=== PATIENT | female | born 1980 | race Caucasian/White ===

== ENCOUNTER 2017-02-07 21:08 | Emergency (ER) | payer OTHER ==
[~2017-02-07] VITALS: Ht 172.7 cm; Wt 113.4 kg
[~2017-02-07 21:08] MED LIST: AMOXICILLIN500 M2 PO; ANAPROX DS550 MG PO; ASPIRIN ADULT L81 M1 PO; ASPIRIN325 M2 PO; ATARAX25 MG PO; ATIVAN1 MG PO; AVAPRO300 MG PO; AYGESTIN5 MG PO; BENTYL10 MG PO; BENTYL20 MG PO; CARDIZEM CD240 M1 PO; CIPRO500 MG PO; CIPROFLOXACIN500 M1 PO; CIPROFLOXACIN500 MG PO; CLARITIN10 MG PO; CLINDAMYCIN150 MG PO; CLONIDINE HCL0.1 M1 PO; CLONIDINE0.1 MG PO; CLONIDINE0.2 MG PO; CORTISPORIN SUS10 ML OT; COUMADIN PO; COUMADIN10 M1 PO; COUMADIN3 M1 PO; COUMADIN5 M2 PO; COUMADIN5 MG PO; COUMADIN7.5 MG PO; COZAAR25 MG PO; COZAAR50 M1 PO; CYMBALTA30 MG PO; DELTASONE20 MG PO; ELIMITE 5%60 GM PO; FLAGYL500 MG PO; FLONASE ALLERG9.9 ML NAS; Fioricet 325 MG1 TAB PO; HYDR12.5C PO; HYDROCODONE BIT1 T11 PO; K-Dur 20MEQ20 MEQ PO; KLONOPIN0.5 MG PO; LIPITOR10 MG PO; LOPRESSOR PO; LORAZEPAM1 MG PO; LOVENOX100 MG/1 M SC; MACROBID100 M1 PO; MACRODANTIN100 MG PO; MEDROL DOSEPAK4 MG PO; METFORMIN500 MG PO; NORCO 325 MG-51 TAB PO; PERCOCET 325 MG1 TA7 PO; PLAVIX75 M1 PO; PREDNISONE10 MG PO; PREVACID30 MG PO; PRILOSEC20 MG PO; PROAIR HFA0.09 MG/AC INH; PROPRANOLOL PO; PROPRANOLOL10 MG PO; REXULTI1 MG PO; ROBITUSSIN AC 110 ML PO; ROXICODONE5 MG PO; TOPAMAX25 M1 PO; TOPAMAX50 MG PO; TRAMADOL HCL50 MG PO; VIBRAMYCIN HYC100 MG PO; VIBRAMYCIN100 MG PO; VICODIN 5/500 505 MG PO; Vicodin 5/500 505 MG PO; WELLBUTRIN100 M1 PO; XANAX0.25 MG PO; ZESTRIL20 MG PO; ZITHROMAX Z PA250 MG PO; ZOFRAN ODT4 MG SL; ZOFRAN4 MG PO; ZOLOFT100 MG PO; Zofran4 MG PO
[2017-02-07 21:29] VITALS: BP 157/66
[2017-02-07] MEDS ORDERED: HYDRALAZINE HYD50 MG PO (21:31)
[2017-02-07] MEDS ORDERED: SIMVASTATIN10 MG PO (21:31)
[2017-02-07] MEDS ORDERED: METOPROLOL SUCC25 M2 PO (21:31)
[2017-02-07] MEDS ORDERED: ASPIR LOW81 MG PO (21:31)
[2017-02-07] MEDS ORDERED: BREO ELLIPTA 11 EACH IH (21:31)
[2017-02-07] MEDS ORDERED: METFORMIN HCL500 MG PO (21:32)
[2017-02-07 21:44] LABS: BILIRUBIN NEGATIVE (NEGATIVE); BLOOD TRACE-INTACT (NEGATIVE); CLARITY SL CLOUDY (CLEAR); COLOR YELLOW (YELLOW); GLUCOSE TRACE (NEGATIVE); KETONE NEGATIVE (NEGATIVE); LEUKO ESTERASE TRACE (NEGATIVE); NITRITE NEGATIVE (NEGATIVE); PH 7.5 (5.0-9.0); PROTEIN TRACE (NEGATIVE); SPECIFIC GRAVITY 1.015 (1.005-1.030)
[2017-02-07 21:59] LABS: BACTERIA 2+; EPITHELIAL CELLS TNTC
[2017-02-07 22:00] LABS: URINE REFLEX COMMENT YES (NO)
[2017-02-07 22:27] LABS: BASO % 0.4 % (0.0-1.0); EOS # 0.2 10*3/uL (0.0-0.4); HEMATOCRIT 42.1 % (37.0-47.0); HEMOGLOBIN 13.9 g/dl (12.0-16.0); IG # 0.1 10*3/uL (0.0-0.1); LYMPH # 3.5 10*3/uL (1.3-4.4); LYMPH % 31.3 % (27.0-41.0); MEAN CELL VOLUME 87.2 fl (81.0-99.0); MEAN CORPUSCULAR HGB 28.8 pg (27.0-31.0); MEAN PLATELET VOLUME 8.3 fl (9.6-12.3); MONO # 0.8 10*3/uL (0.1-1.0); MONO % 6.8 % (3.0-9.0); NEUT # 6.6 10*3/uL (2.3-7.9); NEUT % 58.9 % (47.0-73.0); PLATELET COUNT AUTOMATED 329 10*3/uL (130-400); RED BLOOD COUNT 4.83 10*6/uL (4.10-5.10); RED CELL DISTRI WIDTH 13.8 % (0-14.5); WHITE BLOOD COUNT 11.2 10*3/uL (4.8-10.8)
[2017-02-07 22:45] LABS: ALBUMIN 3.1 gm/dl (3.1-4.5); ALKALINE PHOSPHATASE 82 U/L (45-117); BILIRUBIN, TOTAL 0.2 mg/dl (0.2-1.0); BUN 7 mg/dl (7-24); C-REACTIVE PROTEIN 2.37 MG/DL (0-0.3); CARBON DIOXIDE 29 mmol/L (21-32); CHLORIDE 103 mmol/L (98-107); EST GLOM FILT AFRICAN AMERICAN > 60 ml/min; GLUCOSE 124 mg/dL (65-99); POTASSIUM 3.6 mmol/L (3.5-5.1); SGOT/AST 11 IU/L (3-35); SGPT/ALT 21 U/L (12-78); SODIUM 141 mmol/L (136-145); TOTAL PROTEIN 7.2 gm/dL (6.4-8.2)
== END 2017-02-08 00:49 | disposition home or self-care (01) ==
LOC: ED 21:08
PROVIDERS: Physician Assistant
DX: N83.201 Unspecified ovarian cyst, right side (principal); F17.200 Nicotine dependence, unspecified, uncomplicated; Z98.51 Tubal ligation status; Z98.890 Other specified postprocedural states; Z79.899 Other long term (current) drug therapy; Z79.82 Long term (current) use of aspirin; Z88.2 Allergy status to sulfonamides; Z88.1 Allergy status to other antibiotic agents

== ENCOUNTER 2017-02-25 21:11 | Emergency (ER) | payer OTHER ==
[~2017-02-25] VITALS: Ht 172.7 cm; Wt 108.9 kg
[~2017-02-25 21:11] MED LIST changes: +ASPIR LOW81 MG PO; +BREO ELLIPTA 11 EACH IH; +HYDRALAZINE HYD50 MG PO; +METFORMIN HCL500 MG PO; +METOPROLOL SUCC25 M2 PO; +SIMVASTATIN10 MG PO
[2017-02-25 21:19] VITALS: BP 137/78
[2017-02-25 21:39] LABS: BASO # 0.1 10*3/uL (0.0-0.1); BASO % 0.5 % (0.0-1.0); EOS # 0.4 10*3/uL (0.0-0.4); EOS % 2.5 % (1.0-4.0); HEMATOCRIT 44.9 % (37.0-47.0); HEMOGLOBIN 14.6 g/dl (12.0-16.0); IG # 0.1 10*3/uL (0.0-0.1); LYMPH % 25.6 % (27.0-41.0); MEAN CELL VOLUME 88.9 fl (81.0-99.0); MEAN CORPUSCULAR HGB 28.9 pg (27.0-31.0); MEAN CORPUSCULAR HGB CONC 32.5 g/dl (33.0-37.0); MEAN PLATELET VOLUME 8.7 fl (9.6-12.3); MONO # 0.9 10*3/uL (0.1-1.0); MONO % 5.5 % (3.0-9.0); NEUT # 10.2 10*3/uL (2.3-7.9); NEUT % 65.4 % (47.0-73.0); PLATELET COUNT AUTOMATED 390 10*3/uL (130-400); RED BLOOD COUNT 5.05 10*6/uL (4.10-5.10); RED CELL DISTRI WIDTH 14.3 % (0-14.5); WHITE BLOOD COUNT 15.5 10*3/uL (4.8-10.8)
[2017-02-25 21:50] LABS: PROTHROMBIN TIME 10.7 SECONDS (9.0-12.4)
[2017-02-25 21:55] LABS: ALBUMIN 3.3 gm/dl (3.1-4.5); ALKALINE PHOSPHATASE 81 U/L (45-117); BILIRUBIN, TOTAL 0.2 mg/dl (0.2-1.0); BUN 9 mg/dl (7-24); CARBON DIOXIDE 29 mmol/L (21-32); CHLORIDE 99 mmol/L (98-107); EST GLOM FILT AFRICAN AMERICAN > 60 ml/min; GLUCOSE 190 mg/dL (65-99); MAGNESIUM 1.8 mg/dL (1.5-2.1); POTASSIUM 3.7 mmol/L (3.5-5.1); SGOT/AST 14 IU/L (3-35); SGPT/ALT 21 U/L (12-78); SODIUM 139 mmol/L (136-145); TOTAL PROTEIN 7.7 gm/dL (6.4-8.2)
[2017-02-25 21:57] LABS: TROPONIN I < 0.015 ng/ml (<0.045)
[2017-02-26] MEDS ORDERED: NORCO 5-325 TA1 EACH PO (00:56)
[2017-02-26] MEDS ORDERED: VALIUM5 MG PO (00:56)
[2017-02-26] MEDS ORDERED: NAPROSYN500 MG PO (00:56)
== END 2017-02-26 01:15 | disposition home or self-care (01) ==
LOC: ED 21:11
PROVIDERS: Emergency Medicine
DX: R07.89 Other chest pain (principal); M54.9 Dorsalgia, unspecified; R10.13 Epigastric pain; F17.200 Nicotine dependence, unspecified, uncomplicated; Z88.1 Allergy status to other antibiotic agents; Z79.899 Other long term (current) drug therapy; Z79.82 Long term (current) use of aspirin

== ENCOUNTER 2017-06-28 15:51 | Emergency (ER) | payer OTHER ==
[~2017-06-28] VITALS: Ht 172.7 cm; Wt 90.7 kg
[~2017-06-28 15:51] MED LIST changes: +NAPROSYN500 MG PO; +NORCO 5-325 TA1 EACH PO; +VALIUM5 MG PO
[2017-06-28 17:07] LABS: BASO # 0.1 10*3/uL (0.0-0.1); BASO % 0.7 % (0.0-1.0); EOS # 0.3 10*3/uL (0.0-0.4); EOS % 2.1 % (1.0-4.0); HEMATOCRIT 44.1 % (37.0-47.0); HEMOGLOBIN 14.6 g/dl (12.0-16.0); IG # 0.1 10*3/uL (0.0-0.1); LYMPH # 3.4 10*3/uL (1.3-4.4); LYMPH % 27.1 % (27.0-41.0); MEAN CELL VOLUME 88.9 fl (81.0-99.0); MEAN CORPUSCULAR HGB 29.4 pg (27.0-31.0); MEAN CORPUSCULAR HGB CONC 33.1 g/dl (33.0-37.0); MEAN PLATELET VOLUME 8.8 fl (9.6-12.3); MONO # 0.8 10*3/uL (0.1-1.0); MONO % 6.3 % (3.0-9.0); NEUT % 63.3 % (47.0-73.0); PLATELET COUNT AUTOMATED 348 10*3/uL (130-400); RED BLOOD COUNT 4.96 10*6/uL (4.10-5.10); RED CELL DISTRI WIDTH 14.2 % (0-14.5); WHITE BLOOD COUNT 12.7 10*3/uL (4.8-10.8)
[2017-06-28 17:17] LABS: PROTHROMBIN TIME 10.7 SECONDS (9.0-12.4)
[2017-06-28 17:24] LABS: ALBUMIN 3.3 gm/dl (3.1-4.5); ALKALINE PHOSPHATASE 80 U/L (45-117); BILIRUBIN, TOTAL 0.2 mg/dl (0.2-1.0); BUN 7 mg/dl (7-24); CARBON DIOXIDE 28 mmol/L (21-32); CHLORIDE 98 mmol/L (98-107); EST GLOM FILT AFRICAN AMERICAN > 60 ml/min; GLUCOSE 108 mg/dL (65-99); MAGNESIUM 1.6 mg/dL (1.5-2.1); POTASSIUM 3.8 mmol/L (3.5-5.1); SGOT/AST 16 IU/L (3-35); SGPT/ALT 25 U/L (12-78); SODIUM 136 mmol/L (136-145)
[2017-06-28 17:26] LABS: TROPONIN I < 0.015 ng/ml (<0.045)
[2017-06-28] MEDS ORDERED: PROTONIX40 MG PO (19:08)
[2017-06-28 19:11] VITALS: BP 115/50
== END 2017-06-28 20:09 | disposition home or self-care (01) ==
LOC: ED 15:51
PROVIDERS: Nurse Practitioner
DX: R10.11 Right upper quadrant pain (principal); R10.13 Epigastric pain; F17.200 Nicotine dependence, unspecified, uncomplicated; Z88.1 Allergy status to other antibiotic agents; Z88.2 Allergy status to sulfonamides; Z79.899 Other long term (current) drug therapy; Z79.82 Long term (current) use of aspirin

== ENCOUNTER 2017-10-16 11:44 | Emergency (ER) | payer OTHER ==
[~2017-10-16 11:44] MED LIST changes: +PROTONIX40 MG PO
[2017-10-16 11:46] VITALS: BP 122/73
[2017-10-16 12:05] LABS: HEMATOCRIT 46.6 % (37.0-47.0); HEMOGLOBIN 15.2 g/dl (12.0-16.0); MEAN CELL VOLUME 89.3 fl (81.0-99.0); MEAN CORPUSCULAR HGB 29.1 pg (27.0-31.0); MEAN CORPUSCULAR HGB CONC 32.6 g/dl (33.0-37.0); PLATELET COUNT AUTOMATED 362 10*3/uL (130-400); RED BLOOD COUNT 5.22 10*6/uL (4.10-5.10); RED CELL DISTRI WIDTH 13.6 % (0-14.5); WHITE BLOOD COUNT 15.7 10*3/uL (4.8-10.8)
[2017-10-16 12:12] LABS: BILIRUBIN 1+ (NEGATIVE); BLOOD 3+ (NEGATIVE); CLARITY CLOUDY (CLEAR); COLOR YELLOW (YELLOW); GLUCOSE NEGATIVE (NEGATIVE); KETONE TRACE (NEGATIVE); LEUKO ESTERASE 2+ (NEGATIVE); NITRITE NEGATIVE (NEGATIVE); PH 5.5 (5.0-9.0); SPECIFIC GRAVITY 1.025 (1.005-1.030); UROBILINOGEN 0.2 E.U./dl (0.2-1.0)
[2017-10-16 12:19] LABS: RBC TNTC rbc/hpf (0-2); WBC TNTC wbc/hpf (0-5)
[2017-10-16 12:23] LABS: ALBUMIN 3.7 gm/dl (3.1-4.5); ALKALINE PHOSPHATASE 93 U/L (45-117); BUN 13 mg/dl (7-24); CHLORIDE 101 mmol/L (98-107); POTASSIUM 3.5 mmol/L (3.5-5.1); SGOT/AST 13 IU/L (3-35); SGPT/ALT 18 U/L (12-78); SODIUM 138 mmol/L (136-145); TOTAL PROTEIN 8.2 gm/dL (6.4-8.2)
[2017-10-16 12:30] LABS: PLATELET SUFFICIENCY NORMAL (NORMAL); TOTAL CELLS COUNTED 100 #CELLS
[2017-10-16] MEDS ORDERED: LEVOFLOXACIN500 MG PO (16:20)
[2017-10-16] MEDS ORDERED: PYRIDIUM100 MG PO (16:24)
== END 2017-10-16 12:30 | disposition home or self-care (01) ==
LOC: ED 11:44
PROVIDERS: Registered Nurse
DX: N30.00 Acute cystitis without hematuria (principal); D72.829 Elevated white blood cell count, unspecified; I10 Essential (primary) hypertension; E11.9 Type 2 diabetes mellitus without complications; J44.9 Chronic obstructive pulmonary disease, unspecified; F17.200 Nicotine dependence, unspecified, uncomplicated; Z88.2 Allergy status to sulfonamides; Z88.1 Allergy status to other antibiotic agents; Z79.899 Other long term (current) drug therapy; Z79.82 Long term (current) use of aspirin

== ENCOUNTER 2018-03-10 18:05 | Inpatient (IN) | payer OTHER ==
[~2018-03-10] VITALS: Ht 172.7 cm; Wt 103.6 kg
--- NOTE | ~2018-03-10 | WRIGHTHP ---
[place], [place] PATIENT HISTORY AND PHYSICAL EXAM NAME: NELLY ARIAS [facility] #: [id number] UNIT #: [id number] ROOM: 427 DOCTOR: RANDOLPH MUSE MD BIRTHDATE: [birth year] DOS: 03/10/2018 HISTORY OF PRESENT ILLNESS: The patient is about 38-year-old, came in to the office 2 days ago with complaints of increased frequency of urination. Urinalysis was positive and the patient was sent home on Cipro. The patient comes back into the Emergency Room with complaints that she is having a lot of abdominal pain. She denies having any chest pains or palpitations, does not have any fever or chills, does not have any nausea and emesis. She still has urinary frequency. PAST MEDICAL HISTORY: Significant for; 1. Benign hypertension. 2. Carotid atherosclerosis. 3. History of DVT and PE. 4. History of cerebral aneurysm, status post surgery. 5. Folic acid deficiency. 6. Type 2 diabetes mellitus. 7. History of factor V deficiency. MEDICATIONS: That the patient is currently on are ProAir inhaler, Breo Ellipta, Eliquis 5 b.i.d., aspirin 81 daily, citalopram 20 b.i.d., hydralazine 50 b.i.d., hydrochlorothiazide 12.5 daily, losartan 50 b.i.d., metformin 1000 b.i.d., metoprolol 25 b.i.d. and simvastatin 10 daily. SOCIAL HISTORY: Smoker of about half to 1 pack of cigarettes. Denies using any alcohol. PHYSICAL EXAMINATION: GENERAL: She is awake and alert and oriented. VITAL SIGNS: Graphic trend shows blood pressure 113/53, pulse of 83, respirations 20, temperature 97.8. LUNGS: Diminished breath sounds, clear. HEART: Regular. ABDOMEN: Obese, soft, tenderness in the lower quadrants bilaterally. EXTREMITIES: Without any edema. ASSESSMENT AND PLAN: 1. A patient who presents with abdominal pain, possibly from underlying urinary tract infection. Urine has been refluxed to a culture. She has 4+ bacteria. So, we are still waiting for the culture result. She has an elevated white cell count of 16.2 on admission. 2. Benign hypertension, controlled. 3. History of factor V deficiency, on Eliquis, to be continued. The patient is stable and can be discharged to home today on p.o. antibiotics since the white cell count has normalized. [place], [place] PATIENT HISTORY AND PHYSICAL EXAM NAME: NELLY ARIAS UNIT #: [id number] ROOM: [facility] DOCTOR: RANDOLPH MUSE MD BIRTHDATE: [birth year] RANDOLPH MUSE MD CM:HISPHYS:PATIENT HISTORY AND PHYSICAL EXAMINATION [id number] RANDOLPH MUSE MD 03/11/18 0804 interface
[~2018-03-10 18:05] MED LIST changes: +LEVOFLOXACIN500 MG PO; +PYRIDIUM100 MG PO
[2018-03-10 18:10] VITALS: BP 136/70
[2018-03-10 18:28] LABS: BASO # 0.1 10*3/uL (0.0-0.1); BASO % 0.6 % (0.0-1.0); EOS # 0.3 10*3/uL (0.0-0.4); EOS % 1.7 % (1.0-4.0); HEMATOCRIT 46.8 % (37.0-47.0); HEMOGLOBIN 15.3 g/dl (12.0-16.0); LYMPH # 4.7 10*3/uL (1.3-4.4); LYMPH % 28.8 % (27.0-41.0); MEAN CELL VOLUME 90.5 fl (81.0-99.0); MEAN CORPUSCULAR HGB 29.6 pg (27.0-31.0); MEAN CORPUSCULAR HGB CONC 32.7 g/dl (33.0-37.0); MEAN PLATELET VOLUME 8.7 fl (9.6-12.3); MONO # 1.1 10*3/uL (0.1-1.0); MONO % 6.7 % (3.0-9.0); NEUT % 61.8 % (47.0-73.0); PLATELET COUNT AUTOMATED 357 10*3/uL (130-400); RED BLOOD COUNT 5.17 10*6/uL (4.10-5.10); WHITE BLOOD COUNT 16.2 10*3/uL (4.8-10.8)
[2018-03-10 18:29] LABS: BILIRUBIN NEGATIVE (NEGATIVE); BLOOD NEGATIVE (NEGATIVE); CLARITY SL CLOUDY (CLEAR); COLOR YELLOW (YELLOW); GLUCOSE NEGATIVE (NEGATIVE); KETONE TRACE (NEGATIVE); LEUKO ESTERASE NEGATIVE (NEGATIVE); NITRITE NEGATIVE (NEGATIVE); PH 5.5 (5.0-9.0); SPECIFIC GRAVITY >= 1.030 (1.005-1.030); UROBILINOGEN 0.2 E.U./dl (0.2-1.0)
[2018-03-10 18:40] LABS: BACTERIA 4+; EPITHELIAL CELLS 15-20; MUCOUS TRACE; RBC 0-2 rbc/hpf (0-2); WBC 0-2 wbc/hpf (0-5)
[2018-03-10 18:42] LABS: ALBUMIN 3.6 gm/dl (3.1-4.5); ALKALINE PHOSPHATASE 86 U/L (45-117); BUN 12 mg/dl (7-24); CHLORIDE 101 mmol/L (98-107); CREATININE 0.99 mg/dL (0.55-1.02); POTASSIUM 3.8 mmol/L (3.5-5.1); SGOT/AST 9 IU/L (3-35); SGPT/ALT 16 U/L (12-78); SODIUM 137 mmol/L (136-145)
[2018-03-10 19:50] VITALS: BP 106/50
[2018-03-10 20:21] VITALS: BP 111/59
[2018-03-10 20:41] VITALS: BP 116/55
[2018-03-10] MEDS ORDERED: ELIQUIS5 M1 PO (20:53)
[2018-03-10] MEDS ORDERED: CITALOPRAM20 MG PO (20:53)
[2018-03-11] VITALS: BP 113/53
[2018-03-11 06:07] LABS: BASO # 0.1 10*3/uL (0.0-0.1); BASO % 0.6 % (0.0-1.0); EOS # 0.2 10*3/uL (0.0-0.4); EOS % 2.1 % (1.0-4.0); HEMATOCRIT 41.8 % (37.0-47.0); HEMOGLOBIN 13.3 g/dl (12.0-16.0); LYMPH # 3.5 10*3/uL (1.3-4.4); LYMPH % 34.3 % (27.0-41.0); MEAN CELL VOLUME 91.7 fl (81.0-99.0); MEAN CORPUSCULAR HGB 29.2 pg (27.0-31.0); MEAN CORPUSCULAR HGB CONC 31.8 g/dl (33.0-37.0); MEAN PLATELET VOLUME 8.8 fl (9.6-12.3); MONO # 0.8 10*3/uL (0.1-1.0); MONO % 7.5 % (3.0-9.0); NEUT # 5.6 10*3/uL (2.3-7.9); NEUT % 55.2 % (47.0-73.0); PLATELET COUNT AUTOMATED 310 10*3/uL (130-400); RED BLOOD COUNT 4.56 10*6/uL (4.10-5.10); WHITE BLOOD COUNT 10.1 10*3/uL (4.8-10.8)
[2018-03-11 06:24] LABS: BUN 13 mg/dl (7-24); CHLORIDE 106 mmol/L (98-107); CREATININE 0.88 mg/dL (0.55-1.02); POTASSIUM 3.7 mmol/L (3.5-5.1); SODIUM 140 mmol/L (136-145)
[2018-03-11] MEDS ORDERED: BREO ELLIPTA 11 EACH IH (07:53)
[2018-03-11] MEDS ORDERED: PROAIR HFA8.5 GM INH (07:53)
[2018-03-11] MEDS ORDERED: CIPRO500 MG PO (07:54)
[2018-03-11 08:00] VITALS: BP 107/74
== END 2018-03-11 09:07 | disposition home or self-care (01) | DRG 690 ==
LOC: ED 18:05 → EDHOLD 19:44 → 4E 20:10
PROVIDERS: Internal Medicine; Nurse Practitioner Family
DX: N39.0 Urinary tract infection, site not specified (principal); D68.51 Activated protein C resistance; E11.9 Type 2 diabetes mellitus without complications; F17.210 Nicotine dependence, cigarettes, uncomplicated; E66.9 Obesity, unspecified; G43.909 Migraine, unspecified, not intractable, without status migrainosus; I10 Essential (primary) hypertension; J44.9 Chronic obstructive pulmonary disease, unspecified; Z79.82 Long term (current) use of aspirin; Z79.899 Other long term (current) drug therapy; Z88.2 Allergy status to sulfonamides; Z88.8 Allergy status to other drugs, medicaments and biological substances; Z87.440 Personal history of urinary (tract) infections; Z98.51 Tubal ligation status; Z82.49 Family history of ischemic heart disease and other diseases of the circulatory system; Z83.3 Family history of diabetes mellitus; Z86.718 Personal history of other venous thrombosis and embolism; Z86.711 Personal history of pulmonary embolism; Z68.34 Body mass index [BMI] 34.0-34.9, adult

== ENCOUNTER 2018-05-07 12:59 | Emergency (ER) | payer OTHER ==
[~2018-05-07 12:59] MED LIST changes: +CITALOPRAM20 MG PO; +ELIQUIS5 M1 PO; +PROAIR HFA8.5 GM INH
[2018-05-07] MEDS ORDERED: OMEPRAZOLE D/R20 MG PO (13:16)
[2018-05-07] MEDS ORDERED: TOPAMAX25 M3 PO (13:16)
[2018-05-07 13:23] VITALS: BP 128/70
[2018-05-07] MEDS ORDERED: Motrin,Rufen800 MG PO (15:00)
== END 2018-05-07 15:11 | disposition home or self-care (01) ==
LOC: ED 12:59
DX: R51 Headache (principal); J44.9 Chronic obstructive pulmonary disease, unspecified; G43.909 Migraine, unspecified, not intractable, without status migrainosus; Z88.2 Allergy status to sulfonamides; Z88.1 Allergy status to other antibiotic agents; Z79.899 Other long term (current) drug therapy; Z79.82 Long term (current) use of aspirin

== ENCOUNTER 2018-08-21 13:59 | Emergency (ER) | payer OTHER ==
[~2018-08-21] VITALS: Ht 172.7 cm; Wt 101.6 kg
[~2018-08-21 13:59] MED LIST changes: +METFORMIN ER500 MG PO; -METFORMIN HCL500 MG PO; +Motrin,Rufen800 MG PO; +OMEPRAZOLE D/R20 MG PO; +TOPAMAX25 M3 PO
[2018-08-21 14:04] VITALS: BP 129/65
== END 2018-08-21 15:25 | disposition home or self-care (01) ==
LOC: ED 13:59
DX: R60.0 Localized edema (principal); M79.662 Pain in left lower leg; M25.572 Pain in left ankle and joints of left foot; F17.200 Nicotine dependence, unspecified, uncomplicated; Z88.6 Allergy status to analgesic agent; Z88.2 Allergy status to sulfonamides; Z88.1 Allergy status to other antibiotic agents; Z88.8 Allergy status to other drugs, medicaments and biological substances; Z79.82 Long term (current) use of aspirin; Z79.899 Other long term (current) drug therapy; Z79.84 Long term (current) use of oral hypoglycemic drugs; Z98.51 Tubal ligation status

== ENCOUNTER 2018-10-27 10:13 | Emergency (ER) | payer OTHER ==
[~2018-10-27] VITALS: Ht 172.7 cm; Wt 98.9 kg
[2018-10-27 10:39] LABS: BILIRUBIN NEGATIVE (NEGATIVE); BLOOD NEGATIVE (NEGATIVE); CLARITY SL CLOUDY (CLEAR); COLOR YELLOW (YELLOW); GLUCOSE NEGATIVE (NEGATIVE); KETONE NEGATIVE (NEGATIVE); LEUKO ESTERASE TRACE (NEGATIVE); NITRITE NEGATIVE (NEGATIVE); SPECIFIC GRAVITY 1.015 (1.005-1.030); UROBILINOGEN 0.2 E.U./dl (0.2-1.0)
[2018-10-27 10:41] LABS: BASO # 0.1 10*3/uL (0.0-0.1); BASO % 0.7 % (0.0-1.0); EOS # 0.3 10*3/uL (0.0-0.4); EOS % 2.4 % (1.0-4.0); HEMATOCRIT 46.4 % (37.0-47.0); HEMOGLOBIN 15.2 g/dl (12.0-16.0); LYMPH # 4.1 10*3/uL (1.3-4.4); LYMPH % 33.7 % (27.0-41.0); MEAN CELL VOLUME 88.5 fl (81.0-99.0); MEAN CORPUSCULAR HGB CONC 32.8 g/dl (33.0-37.0); MEAN PLATELET VOLUME 8.9 fl (9.6-12.3); MONO # 0.7 10*3/uL (0.1-1.0); MONO % 5.7 % (3.0-9.0); NEUT % 57.3 % (47.0-73.0); PLATELET COUNT AUTOMATED 353 10*3/uL (130-400); RED BLOOD COUNT 5.24 10*6/uL (4.10-5.10); RED CELL DISTRI WIDTH 14.1 % (0-14.5); WHITE BLOOD COUNT 12.3 10*3/uL (4.8-10.8)
[2018-10-27 11:02] LABS: BACTERIA 2+; MUCOUS TRACE
[2018-10-27 11:07] LABS: ALBUMIN 3.5 gm/dl (3.1-4.5); ALKALINE PHOSPHATASE 92 U/L (45-117); BUN 11 mg/dl (7-24); CHLORIDE 102 mmol/L (98-107); CREATININE 1.14 mg/dL (0.55-1.02); LIPASE 58 U/L (73-393); SGOT/AST 21 IU/L (3-35); SGPT/ALT 20 U/L (12-78); SODIUM 139 mmol/L (136-145); TOTAL PROTEIN 8.3 gm/dL (6.4-8.2)
[2018-10-27 11:08] LABS: POTASSIUM 4.1 mmol/L (3.5-5.1)
[2018-10-27 11:47] VITALS: BP 122/54
== END 2018-10-27 12:26 | disposition home or self-care (01) ==
LOC: ED 10:13
PROVIDERS: Nurse Practitioner Family
DX: E27.8 Other specified disorders of adrenal gland (principal); R03.0 Elevated blood-pressure reading, without diagnosis of hypertension; J44.9 Chronic obstructive pulmonary disease, unspecified; G43.909 Migraine, unspecified, not intractable, without status migrainosus; Z90.710 Acquired absence of both cervix and uterus; Z88.6 Allergy status to analgesic agent; Z88.2 Allergy status to sulfonamides; Z88.1 Allergy status to other antibiotic agents; Z79.899 Other long term (current) drug therapy; Z79.84 Long term (current) use of oral hypoglycemic drugs

== ENCOUNTER 2018-12-11 08:32 | Emergency (ER) | payer OTHER ==
[~2018-12-11] VITALS: Ht 172.7 cm; Wt 108.9 kg
[~2018-12-11 08:32] MED LIST changes: -HYDRALAZINE HYD50 MG PO; +Hydralazine Hyd25 MG PO
[2018-12-11 08:35] VITALS: BP 158/73
[2018-12-11] MEDS ORDERED: VIBRAMYCIN100 MG PO (09:24)
[2018-12-11] MEDS ORDERED: PREDNISONE50 MG PO (09:24)
[2018-12-11] MEDS ORDERED: PROVENTIL HFA6.7 GM INH (09:24)
[2018-12-11] MEDS ORDERED: Ipratropium Brom3 ML INH (09:24)
[2018-12-29] MEDS ORDERED: ZITHROMAX250 MG PO (14:24)
[2018-12-29] MEDS ORDERED: MUCINEX ER600 MG PO (14:24)
[2018-12-29] MEDS ORDERED: PREDNISONE10 MG PO (14:24)
[2018-12-29] MEDS ORDERED: VITAMIN D32000 UNI1 PO (14:24)
[2018-12-29] MEDS ORDERED: ZOFRAN4 MG PO (14:26)
[2018-12-29] MEDS ORDERED: PROAIR HFA8.5 GM INH (15:36)
== END 2018-12-11 09:38 | disposition home or self-care (01) ==
LOC: ED 08:32
DX: J44.1 Chronic obstructive pulmonary disease with (acute) exacerbation (principal); R19.7 Diarrhea, unspecified; G43.909 Migraine, unspecified, not intractable, without status migrainosus; Z88.6 Allergy status to analgesic agent; Z88.2 Allergy status to sulfonamides; Z88.8 Allergy status to other drugs, medicaments and biological substances; Z79.899 Other long term (current) drug therapy

== ENCOUNTER 2018-12-22 07:52 | Emergency (ER) | payer OTHER ==
--- NOTE | ~2018-12-22 | EKG ---
[place], [place] ELECTROCARDIOGRAM REPORT NAME: NELLY CALVILLO UNIT #: [id number] ROOM: DOCTOR: EPIPHANY DRAFT REPORT BIRTHDATE: [birth year] [facility] Test Date: 2018-12-22 Test Time: 08:18:14 Pat Name: NELLY CALVILLO Department: Room: Gender: F Seasonal Retail Merchandiser: Liliana Nichols : 1980 Requested By: CHERRY GAYLE Order Number: [id number] Reading MD: Leodan Doty MD Measurements Intervals Holliday Rate: 106 P: 69 NE: 187 QRS: 89 QRSD: 96 T: 84 QT: 339 QTc: 451 Interpretive Statements Sinus tachycardia No previous ECG available for comparison Electronically Signed On 12-22-2018 14:10:16 PST by Leodan Doty MD CM:EKGRPT:ELECTROCARDIOGRAM REPORT [id number] CHERRY SLACEDO DRAFT REPORT CHERRY GAYLE DO
[~2018-12-22 07:52] MED LIST changes: +Ipratropium Brom3 ML INH; +PREDNISONE50 MG PO; +PROVENTIL HFA6.7 GM INH
[2018-12-22 08:27] LABS: BASO # 0.1 10*3/uL (0.0-0.1); BASO % 0.5 % (0.0-1.0); EOS # 0.1 10*3/uL (0.0-0.4); EOS % 1.2 % (1.0-4.0); HEMATOCRIT 47.5 % (37.0-47.0); HEMOGLOBIN 14.9 g/dl (12.0-16.0); LYMPH # 2.8 10*3/uL (1.3-4.4); LYMPH % 25.5 % (27.0-41.0); MEAN CELL VOLUME 90.8 fl (81.0-99.0); MEAN CORPUSCULAR HGB 28.5 pg (27.0-31.0); MEAN CORPUSCULAR HGB CONC 31.4 g/dl (33.0-37.0); MEAN PLATELET VOLUME 8.8 fl (9.6-12.3); MONO # 0.7 10*3/uL (0.1-1.0); MONO % 6.4 % (3.0-9.0); NEUT # 7.2 10*3/uL (2.3-7.9); NEUT % 65.9 % (47.0-73.0); PLATELET COUNT AUTOMATED 281 10*3/uL (130-400); RED BLOOD COUNT 5.23 10*6/uL (4.10-5.10); RED CELL DISTRI WIDTH 14.4 % (0-14.5)
[2018-12-22 08:37] LABS: ACT PARTIAL THROMBO TIME 26.8 SECONDS (20.8-31.5)
[2018-12-22 08:46] LABS: ALBUMIN 3.3 gm/dl (3.1-4.5); ALKALINE PHOSPHATASE 83 U/L (45-117); BUN 10 mg/dl (7-24); CHLORIDE 103 mmol/L (98-107); CREATININE 0.93 mg/dL (0.55-1.02); POTASSIUM 3.6 mmol/L (3.5-5.1); SGOT/AST 12 IU/L (3-35); SGPT/ALT 22 U/L (12-78); SODIUM 141 mmol/L (136-145); TOTAL PROTEIN 7.3 gm/dL (6.4-8.2)
[2018-12-22 09:00] VITALS: BP 144/57
[2018-12-22 09:28] LABS: BILIRUBIN NEGATIVE (NEGATIVE); BLOOD NEGATIVE (NEGATIVE); CLARITY CLEAR (CLEAR); COLOR YELLOW (YELLOW); GLUCOSE NEGATIVE (NEGATIVE); KETONE NEGATIVE (NEGATIVE); LEUKO ESTERASE NEGATIVE (NEGATIVE); NITRITE NEGATIVE (NEGATIVE); UROBILINOGEN 0.2 E.U./dl (0.2-1.0)
[2018-12-22 09:47] LABS: BACTERIA 2+; WBC 0-2 wbc/hpf (0-5)
[2018-12-29] MEDS ORDERED: VITAMIN D32000 UNI1 PO (14:24)
[2018-12-29] MEDS ORDERED: MUCINEX ER600 MG PO (14:24)
[2018-12-29] MEDS ORDERED: PREDNISONE10 MG PO (14:24)
[2018-12-29] MEDS ORDERED: ZITHROMAX250 MG PO (14:24)
[2018-12-29] MEDS ORDERED: ZOFRAN4 MG PO (14:26)
[2018-12-29] MEDS ORDERED: PROAIR HFA8.5 GM INH (15:36)
== END 2018-12-22 10:00 | disposition short-term general hospital (02) ==
LOC: ED 07:52
PROVIDERS: Emergency Medicine; Family Medicine
DX: G45.9 Transient cerebral ischemic attack, unspecified (principal); J44.9 Chronic obstructive pulmonary disease, unspecified; F17.200 Nicotine dependence, unspecified, uncomplicated; Z88.6 Allergy status to analgesic agent; Z88.2 Allergy status to sulfonamides; Z88.8 Allergy status to other drugs, medicaments and biological substances; Z88.1 Allergy status to other antibiotic agents; Z79.2 Long term (current) use of antibiotics; G43.909 Migraine, unspecified, not intractable, without status migrainosus; Z79.899 Other long term (current) drug therapy; Z79.84 Long term (current) use of oral hypoglycemic drugs

== ENCOUNTER 2020-07-27 18:29 | Emergency (ER) | payer SELFPAY ==
[~2020-07-27] VITALS: Ht 172.7 cm; Wt 122.5 kg
[~2020-07-27 18:29] MED LIST changes: +CEFUROXIME AXE500 MG PO; +MUCINEX ER600 MG PO; +PYRIDIUM200 M1 PO; +VITAMIN D32000 UNI1 PO; +ZITHROMAX250 MG PO
[2020-07-27 18:46] VITALS: BP 140/62
[2020-07-27 19:16] LABS: BASO # 0.1 10*3/uL (0.0-0.1); BASO % 0.6 % (0.0-1.0); EOS # 0.3 10*3/uL (0.0-0.4); EOS % 2.5 % (1.0-4.0); HEMATOCRIT 47.2 % (37.0-47.0); LYMPH # 3.2 10*3/uL (1.3-4.4); LYMPH % 31.2 % (27.0-41.0); MEAN CELL VOLUME 90.1 fl (81.0-99.0); MEAN CORPUSCULAR HGB 28.6 pg (27.0-31.0); MEAN CORPUSCULAR HGB CONC 31.8 g/dl (33.0-37.0); MEAN PLATELET VOLUME 8.8 fl (9.6-12.3); MONO # 0.7 10*3/uL (0.1-1.0); MONO % 6.3 % (3.0-9.0); NEUT # 6.1 10*3/uL (2.3-7.9); PLATELET COUNT AUTOMATED 303 10*3/uL (130-400); RED BLOOD COUNT 5.24 10*6/uL (4.10-5.10); RED CELL DISTRI WIDTH 14.5 % (0-14.5); WHITE BLOOD COUNT 10.4 10*3/uL (4.8-10.8)
[2020-07-27 19:26] LABS: INTERNATIONAL NORM RATIO 1.1 (2.0-3.5)
[2020-07-27 19:33] LABS: ALBUMIN 3.2 gm/dl (3.1-4.5); ALKALINE PHOSPHATASE 113 U/L (45-117); BUN 11 mg/dl (7-24); CHLORIDE 105 mmol/L (98-107); CREATININE 1.01 mg/dL (0.55-1.02); POTASSIUM 3.8 mmol/L (3.5-5.1); SGOT/AST 17 IU/L (3-35); SGPT/ALT 30 U/L (12-78); SODIUM 141 mmol/L (136-145); TOTAL PROTEIN 7.6 gm/dL (6.4-8.2)
[2020-07-27 19:37] LABS: TROPONIN I < 0.015 ng/ml (<0.045)
== END 2020-07-27 20:56 | disposition home or self-care (01) ==
LOC: ED 18:29
PROVIDERS: Nurse Practitioner Family
DX: R60.0 Localized edema (principal); I10 Essential (primary) hypertension; E11.9 Type 2 diabetes mellitus without complications; J44.9 Chronic obstructive pulmonary disease, unspecified; F17.200 Nicotine dependence, unspecified, uncomplicated; Z88.2 Allergy status to sulfonamides; Z88.8 Allergy status to other drugs, medicaments and biological substances; Z79.899 Other long term (current) drug therapy

== ENCOUNTER 2020-08-06 13:46 | Inpatient (IN) | payer OTHER ==
[~2020-08-06] VITALS: Ht 172.7 cm; Wt 123.4 kg
[2020-08-06] VITALS (7 sets, daily range): BP systolic 119–152; BP diastolic 56–110
[2020-08-06 16:19] LABS: BASO # 0.1 10*3/uL (0.0-0.1); BASO % 0.4 % (0.0-1.0); EOS # 0.1 10*3/uL (0.0-0.4); EOS % 0.5 % (1.0-4.0); HEMATOCRIT 46.6 % (37.0-47.0); LYMPH # 2.5 10*3/uL (1.3-4.4); LYMPH % 19.5 % (27.0-41.0); MEAN CELL VOLUME 89.3 fl (81.0-99.0); MEAN CORPUSCULAR HGB 28.2 pg (27.0-31.0); MEAN CORPUSCULAR HGB CONC 31.5 g/dl (33.0-37.0); MEAN PLATELET VOLUME 8.8 fl (9.6-12.3); MONO % 7.9 % (3.0-9.0); PLATELET COUNT AUTOMATED 283 10*3/uL (130-400); RED BLOOD COUNT 5.22 10*6/uL (4.10-5.10); RED CELL DISTRI WIDTH 15.1 % (0-14.5); WHITE BLOOD COUNT 12.6 10*3/uL (4.8-10.8)
[2020-08-06 16:20] LABS: ABG BASE EXCESS 6.7 mmol/L (-2.0-2.0); ARTERIAL BLOOD GAS PH 7.417 (7.35-7.45)
[2020-08-06 16:29] LABS: INTERNATIONAL NORM RATIO 1.1 (2.0-3.5)
[2020-08-06 16:37] LABS: ALBUMIN 3.3 gm/dl (3.1-4.5); ALKALINE PHOSPHATASE 108 U/L (45-117); BUN 13 mg/dl (7-24); CHLORIDE 97 mmol/L (98-107); CREATININE 0.82 mg/dL (0.55-1.02); POTASSIUM 3.8 mmol/L (3.5-5.1); SGOT/AST 12 IU/L (3-35); SGPT/ALT 21 U/L (12-78); SODIUM 133 mmol/L (136-145); TOTAL PROTEIN 7.8 gm/dL (6.4-8.2)
[2020-08-06 16:39] LABS: TROPONIN I < 0.015 ng/ml (<0.045)
--- NOTE | 2020-08-06 19:27 | NUR ---
NURSE TO NURSE REPORT GIVEN TO THIS RN.PT AWAITING ADMISSION TO ICU-2.DESIGN ARCHITECT ADVISES PT IS UNABLE TO BE TRANSFERRED TO UNIT AT THIS TIME.AMILCAR CRISOSTOMO AWARE OF DECREASE IN PT O2 SAT TO 83% ON 15L CONTINUOS O2.PT TO BE ORDERED BIPAP.PT MOVED TO ROOM ER3 AT THIS TIME TO AWAIT ADMISSION.
--- NOTE | 2020-08-06 19:40 | NUR ---
RESPIRATORY AT BEDSIDE TO PLACE PT ON BIPAP.
--- NOTE | 2020-08-06 19:42 | NUR ---
PT DENIES ANY WOUNDS.
--- NOTE | 2020-08-06 19:48 | NUR ---
PLACED PATIENT ON BIPAP 12/, 60%. SPO2 95%, HR 86, VT 587, F18, LEAK 5. TOLERATING WELL. ALARMS ON AND AUDIBLE
--- NOTE | 2020-08-06 21:01 | NUR ---
PT TO ICCU AT THIS TIME VIA STRETCHER.RESPIRATORY CALLED FOR TRANSPORT OF BIPAP MACHINE.IV FLUIDS OF ZITHROMAX CONTINUE WITH TRANSFER.
--- NOTE | 2020-08-06 21:20 | NUR ---
A 40, admitted to ICCU, under the services of ALBERTO Schwartz DO with a diagnosis of SUSPECTED COVID. Chief complaint is SHORTNESS OF BREATH, COUGH. Patient arrived via bed from ER. Monitor applied. Initial assessment completed. Vital signs taken and recorded. ALBERTO SCHWARTZ DO notified of admission to the unit. Orders received. See assessment for past medical history, medications and allergies. Patient and/or family oriented to unit. [facility] ICCU visitation policy reviewed. Clothing/patient valuable form completed. LIZZIE LLOYD
[2020-08-06 21:32] LABS: ABG BASE EXCESS 5.5 mmol/L (-2.0-2.0); ARTERIAL BLOOD GAS PH 7.386 (7.35-7.45)
--- NOTE | 2020-08-06 21:40 | NUR ---
Patient informed me she didnt want to wear the bipap and for me to tell Dr. Ware that when I spoke to him, I explained the consequences to her and that she might require intubation if getting worse. She stated she did not want to get the tube. I spoke with Dr. Ware and made him aware of patients wishes.
--- NOTE | 2020-08-06 21:50 | NUR ---
Patient now agreeable to intubation, if needed. Patient also stated she would try to wear the bipap.
--- NOTE | 2020-08-06 22:00 | NUR ---
Pt placed on 15L HFNC - SPO2 92% - Pt is complaining of the BiPap. Will continue to monitor. Nurse aware.
--- NOTE | 2020-08-06 22:00 | NUR ---
Patient refused bipap, which she was wearing from ed. Placed on 15L highflow, pox 91-92%
--- NOTE | 2020-08-06 23:20 | NUR ---
Patient place back on bipap, tolerating. POX 93%
[2020-08-06] MEDS ORDERED: XARELTO10 MG PO (23:47)
[2020-08-06] MEDS ORDERED: ESCITALOPRAM OX20 MG PO (23:48)
--- NOTE | 2020-08-06 23:51 | NUR ---
MED REQ UPDATED.
[2020-08-07] VITALS (7 sets, daily range): BP systolic 104–130; BP diastolic 53–67
--- NOTE | 2020-08-07 03:21 | NUR ---
Patient has tolerated the bipap well throughout the night. POX 94%
--- NOTE | 2020-08-07 05:30 | NUR ---
Patient pulled out iv while sleeping, new one started.
[2020-08-07 05:46] LABS: ALBUMIN 2.9 gm/dl (3.1-4.5); ALKALINE PHOSPHATASE 104 U/L (45-117); BUN 15 mg/dl (7-24); CHLORIDE 102 mmol/L (98-107); CHOLESTEROL 152 mg/dL (<200); CREATININE 0.74 mg/dL (0.55-1.02); HDL CHOLESTEROL 24 mg/dl (40-60); LDL CHOLESTEROL 101 mg/dL (9-159); POTASSIUM 4.4 mmol/L (3.5-5.1); SGOT/AST 10 IU/L (3-35); SGPT/ALT 23 U/L (12-78); SODIUM 136 mmol/L (136-145); TOTAL PROTEIN 7.6 gm/dL (6.4-8.2); TRIGLYCERIDES 137 mg/dl (<150); VLDL CHOLESTEROL 27 mg/dL (6-40)
[2020-08-07 05:48] LABS: CPK 124 U/L (26-192); FREE T4 0.98 ng/dl (0.76-1.46)
[2020-08-07 05:53] LABS: THYROID STIM HORMONE (HS) 0.342 uIU/ml (0.358-4.75)
[2020-08-07 06:08] LABS: BASO % 0.4 % (0.0-1.0); HEMATOCRIT 46.6 % (37.0-47.0); LYMPH # 1.2 10*3/uL (1.3-4.4); LYMPH % 16.7 % (27.0-41.0); MEAN CORPUSCULAR HGB 28.4 pg (27.0-31.0); MEAN CORPUSCULAR HGB CONC 31.5 g/dl (33.0-37.0); MEAN PLATELET VOLUME 9.1 fl (9.6-12.3); MONO # 0.2 10*3/uL (0.1-1.0); MONO % 3.1 % (3.0-9.0); NEUT # 5.8 10*3/uL (2.3-7.9); NEUT % 78.7 % (47.0-73.0); PLATELET COUNT AUTOMATED 267 10*3/uL (130-400); RED BLOOD COUNT 5.18 10*6/uL (4.10-5.10); RED CELL DISTRI WIDTH 14.8 % (0-14.5); WHITE BLOOD COUNT 7.4 10*3/uL (4.8-10.8)
[2020-08-07 06:47] LABS: ACT PARTIAL THROMBO TIME 31.8 SECONDS (20.0-32.1); INTERNATIONAL NORM RATIO 1.1 (2.0-3.5)
--- NOTE | 2020-08-07 07:35 | NUR ---
PATIENT TAKEN OFF OF BI-PAP, PLACED ON 15 L/M HIGH FLOW.
[2020-08-07 07:42] LABS: ABG BASE EXCESS 5.6 mmol/L (-2.0-2.0); ARTERIAL BLOOD GAS PH 7.353 (7.35-7.45)
[2020-08-07 08:12] LABS: VITAMIN D, 25-HYDROXY 20.5 ng/mL (30-100)
--- NOTE | 2020-08-07 10:38 | NUR ---
[id number] aWAKE AND ALERT. nO C/O. iNDEPENDENT . Dr. Ware in to [facility]. ABG were drawn and resulted to him. New orders were recieved. Breakfast was given and taken well. UA and sputum specimens were obtained and sent. Dr. Wong is rounding at this time. Resident for Dr. Whitten was in.
[2020-08-07 11:15] LABS: BILIRUBIN NEGATIVE; BLOOD NEGATIVE (NEGATIVE); CLARITY CLEAR (CLEAR); COLOR Yellow (YELLOW); GLUCOSE 3+; KETONE NEGATIVE; LEUKO ESTERASE NEGATIVE (NEGATIVE); NITRITE NEGATIVE (NEGATIVE); PH 6.5 (4.5-8.0); SPECIFIC GRAVITY 1.025 (1.001-1.030); UROBILINOGEN 0.2 E.U./dl (0.0-1.0)
[2020-08-07 11:18] LABS: BACTERIA TRACE
[2020-08-07 11:19] LABS: YEAST 1+
[2020-08-07 12:25] LABS: ARTERIAL BLOOD GAS PH 7.416 (7.35-7.45)
--- NOTE | 2020-08-07 12:27 | NUR ---
dR. Arita IN [facility] [place].
--- NOTE | 2020-08-07 12:52 | NUR ---
Dr. Ware was notified of ABG result and orders were recieved.
--- NOTE | 2020-08-07 17:26 | NUR ---
Full assessment . Partial bath offered, Requested a wash cloth , given , stated she washed up enough. Supper ordered. And taken well.
[2020-08-08] VITALS: BP 140/47
[2020-08-08 04:00] VITALS: BP 133/56
--- NOTE | 2020-08-08 04:15 | NUR ---
Patient requested to be off bipap, placed on 12L highflow, POX 93-94%
[2020-08-08 06:04] LABS: BASO % 0.2 % (0.0-1.0); EOS % 0.1 % (1.0-4.0); HEMATOCRIT 45.6 % (37.0-47.0); LYMPH % 24.5 % (27.0-41.0); MEAN CELL VOLUME 92.1 fl (81.0-99.0); MEAN CORPUSCULAR HGB 28.9 pg (27.0-31.0); MEAN CORPUSCULAR HGB CONC 31.4 g/dl (33.0-37.0); MEAN PLATELET VOLUME 9.1 fl (9.6-12.3); MONO # 0.6 10*3/uL (0.1-1.0); MONO % 5.1 % (3.0-9.0); NEUT # 8.4 10*3/uL (2.3-7.9); NEUT % 69.6 % (47.0-73.0); PLATELET COUNT AUTOMATED 266 10*3/uL (130-400); RED BLOOD COUNT 4.95 10*6/uL (4.10-5.10); RED CELL DISTRI WIDTH 14.8 % (0-14.5)
[2020-08-08 06:13] LABS: ALBUMIN 2.9 gm/dl (3.1-4.5); ALKALINE PHOSPHATASE 93 U/L (45-117); BUN 18 mg/dl (7-24); CHLORIDE 100 mmol/L (98-107); CREATININE 0.87 mg/dL (0.55-1.02); LDH 140 U/L (84-246); POTASSIUM 3.9 mmol/L (3.5-5.1); SGOT/AST 3 IU/L (3-35); SGPT/ALT 20 U/L (12-78); SODIUM 137 mmol/L (136-145); TOTAL PROTEIN 7.2 gm/dL (6.4-8.2)
[2020-08-08 06:18] LABS: CPK 59 U/L (26-192)
--- NOTE | 2020-08-08 07:40 | NUR ---
PT NOT ON BIPAP AT THIS TIME. PT RESTING AND SPO2 92%
[2020-08-08 08:00] VITALS: BP 121/69
--- NOTE | 2020-08-08 08:00 | NUR ---
PT AAOX3. VSS. RESP EASY. LUNG RODRIGUEZ DIM. BILATERALLY. POX 89-93% ON 12L HIGH-TAVARES NC. ABD. SOFT WITH ACTIVE BOWEL SOUNDS. NO PERIPHERAL EDEMA. PT DOES C/O A SORE NOSE. SHE STATES IT MAY BE JUST DRY. WILL NOTIFY DOCTOR.
--- NOTE | 2020-08-08 09:00 | NUR ---
Patient remains in isolation. Discharge plan undecided at this time.
--- NOTE | 2020-08-08 10:42 | NUR ---
DR SCHMITT AND DR MCKEON IN TO SEE PT.
--- NOTE | 2020-08-08 11:25 | NUR ---
PT NOT ON BIPAP AT THIS TIME
[2020-08-08 11:50] LABS: ABG BASE EXCESS 8.1 mmol/L (-2.0-2.0); ARTERIAL BLOOD GAS PH 7.378 (7.35-7.45)
--- NOTE | 2020-08-08 11:56 | NUR ---
DR MAXWELL IN TO SEE PT.
[2020-08-08 12:00] VITALS: BP 127/39
--- NOTE | 2020-08-08 12:09 | NUR ---
DR SCHMITT UPDATED ON ABG RESULTS. NEW ORDERS RECEIVED.
--- NOTE | 2020-08-08 13:45 | NUR ---
pt placed on bipap. spo2 95% ,hr 61, rr 14. pt resting easy. instructed pt she needs to stay on machine for [address] stark
--- NOTE | 2020-08-08 14:37 | NUR ---
Patient's [facility] pillowcase cutter Kayla from [facility] stated she can be contacted for any discharge needs the patient may have. Kayla ext [phone]
[2020-08-08 16:00] VITALS: BP 132/42
--- NOTE | 2020-08-08 16:52 | NUR ---
BIPAP TAKEN OFF AT THIS TIME. 12L HIGH TAVARES NC APPLIED. PT DENIES COMPLAINTS AT THIS TIME.
--- NOTE | 2020-08-08 18:24 | NUR ---
PT EATING DINNER. NO ACUTE DISTRESS NOTED.
[2020-08-08 20:00] VITALS: BP 137/71
--- NOTE | 2020-08-08 20:17 | NUR ---
1999 UP TO BR. HAD BM. BATH TAKEN AT SINK PER SELF. LINENS CHANGED. TOLERATED WELL. 02 INTACT VIA HI TAVARES NC. PULSE OX 95%. HEP LOCK INTACT. NO C/O'S VOICED AT PRESENT. 2019 BACK TO BED. HOB ELEVATED. CALL LIGHT IN REACH. BIPAP APPLIED. PULSE OX 95%.
--- NOTE | 2020-08-08 20:56 | NUR ---
ZOFRAN IF FOR C/O'S NAUSEA. NO EMESIS NOTED. WILL MONITOR.
--- NOTE | 2020-08-08 21:56 | NUR ---
2155 EARLIER ZOFRAN EFFECTIVE. RESTING IN BED WITH EYES CLOSED. APPEARS TO BE SLEEPING. PULSE OX 97%
[2020-08-09] VITALS: BP 138/80
--- NOTE | 2020-08-09 00:09 | NUR ---
08/08/20 2300 UP TO BSC. TOLERATED WELL. BIPAP REMOVED PER REQUEST AND PT PLACED BACK ON HI TAVARES NC. 0005 RESTING IN BED WITH EYES CLOSED. APPEARS TO BE SLEEPING.
--- NOTE | 2020-08-09 02:25 | NUR ---
HR IN THE 40'S. PT IS SLEEPING SOUNDLY. SKIN W/D. BP 130/80. AWAKENS EASILY. HR UP TO THE 60-70'S WHEN AWAKENED. WILL CONT TO MONITOR.
--- NOTE | 2020-08-09 02:37 | NUR ---
RESIDENT NOTIFIED OF PT SINUS BRADYCARDIA.
[2020-08-09 04:00] VITALS: BP 110/56
[2020-08-09 06:02] LABS: BUN 17 mg/dl (7-24); CHLORIDE 101 mmol/L (98-107); CREATININE 0.71 mg/dL (0.55-1.02); LDH 146 U/L (84-246); POTASSIUM 4.1 mmol/L (3.5-5.1); SGOT/AST 16 IU/L (3-35); SGPT/ALT 42 U/L (12-78); SODIUM 138 mmol/L (136-145); TOTAL PROTEIN 7.1 gm/dL (6.4-8.2)
[2020-08-09 06:03] LABS: ALKALINE PHOSPHATASE 86 U/L (45-117)
--- NOTE | 2020-08-09 06:07 | NUR ---
REMAINS SLEEPING WITHOUT DISTRESS. NO C/O'S VOICED. ISOLATION CONT. MONITOR REMAINS SB IN THE 40'S, BUT HR COMES UP IN THE 60-70'S WHEN PT IS FULLY AWAKE. CONDITION GUARDED.
[2020-08-09 06:08] LABS: CPK 35 U/L (26-192)
[2020-08-09 06:16] LABS: BASO % 0.2 % (0.0-1.0); EOS % 0.1 % (1.0-4.0); LYMPH # 2.9 10*3/uL (1.3-4.4); LYMPH % 25.1 % (27.0-41.0); MEAN CELL VOLUME 90.7 fl (81.0-99.0); MEAN CORPUSCULAR HGB 28.7 pg (27.0-31.0); MEAN CORPUSCULAR HGB CONC 31.6 g/dl (33.0-37.0); MEAN PLATELET VOLUME 9.1 fl (9.6-12.3); MONO # 0.7 10*3/uL (0.1-1.0); MONO % 5.7 % (3.0-9.0); NEUT % 68.5 % (47.0-73.0); PLATELET COUNT AUTOMATED 285 10*3/uL (130-400); RED BLOOD COUNT 4.74 10*6/uL (4.10-5.10); RED CELL DISTRI WIDTH 14.6 % (0-14.5); WHITE BLOOD COUNT 11.6 10*3/uL (4.8-10.8)
[2020-08-09 07:49] LABS: ABG BASE EXCESS 6.1 mmol/L (-2.0-2.0); ARTERIAL BLOOD GAS PH 7.376 (7.35-7.45)
[2020-08-09 08:00] VITALS: BP 133/55
--- NOTE | 2020-08-09 08:26 | NUR ---
Awake and alert. Independent. O2 decreased to 10 L and subsequently decreased to 8L per RT. ABG was drawn and resulted. improved from 08/[address] Ware arrival for reporting of result.
[2020-08-09 10:09] LABS: ACID FAST SPEC PROCESSING Concentration (.)
--- NOTE | 2020-08-09 11:43 | NUR ---
dOZING, WAITING FOR LUNCH . d-sAT 86%. o2 INCREASED TO 10 l. Continued to De-Sat 85-88% . O2 increased to 12L Sat increased to 92% w/i 3 min.
[2020-08-09 12:00] VITALS: BP 139/64
--- NOTE | 2020-08-09 15:56 | NUR ---
Bi-pap placed after lunch, remains. February ( infectious disease ) in to evaulate. Reaffirmed recommendation to remain in isolation.
[2020-08-09 16:00] VITALS: BP 132/69
[2020-08-09 20:00] VITALS: BP 118/57
--- NOTE | 2020-08-09 20:00 | NUR ---
Pt placed on BiPap 16/10 and FiO2 60%. Alarms on and audible. SPO2 94%
--- NOTE | 2020-08-09 20:00 | NUR ---
PT RESTING IN BED AWAKE, A&O, PLEASANT AND COOPERATIVE. RESP NONLABORED. NO ACUTE DISTRESS NOTED. BIPAP ON. HEPLOCK PATENT. NO S/S OF HYPO/HYPERGLYDEMIA NOTED. NO COMPLAINTS VOICED.
[2020-08-10] VITALS: BP 116/50
[2020-08-10 04:00] VITALS: BP 127/65
--- NOTE | 2020-08-10 05:00 | NUR ---
PT C/O HEADACHE FROM BIPAP. PT REQUEST TO WEAR NASAL CANNULA AT THIS TIME. HAS WORN BIPAP THROUGHOUT NIGHT. MEDICATED WITH TYLENOL PER PRN ORDER FOR C/OHEADACHE AND PLACED ON HI FLOW NC 12L. POX 94%. NO ACUTE DISTRESS NOTED.
--- NOTE | 2020-08-10 06:00 | NUR ---
TYLENOL EFFECTIVE FOR HEADACHE.
[2020-08-10 06:16] LABS: BASO % 0.2 % (0.0-1.0); LYMPH % 26.2 % (27.0-41.0); MEAN CELL VOLUME 90.2 fl (81.0-99.0); MEAN CORPUSCULAR HGB 28.5 pg (27.0-31.0); MEAN CORPUSCULAR HGB CONC 31.6 g/dl (33.0-37.0); MONO # 0.6 10*3/uL (0.1-1.0); MONO % 5.6 % (3.0-9.0); NEUT # 7.6 10*3/uL (2.3-7.9); NEUT % 67.5 % (47.0-73.0); PLATELET COUNT AUTOMATED 286 10*3/uL (130-400); RED BLOOD COUNT 4.88 10*6/uL (4.10-5.10); RED CELL DISTRI WIDTH 14.6 % (0-14.5); WHITE BLOOD COUNT 11.3 10*3/uL (4.8-10.8)
[2020-08-10 06:38] LABS: ALKALINE PHOSPHATASE 84 U/L (45-117); BUN 18 mg/dl (7-24); CHLORIDE 100 mmol/L (98-107); CPK 36 U/L (26-192); CREATININE 0.67 mg/dL (0.55-1.02); LDH 200 U/L (84-246); SGOT/AST 10 IU/L (3-35); SGPT/ALT 38 U/L (12-78); SODIUM 135 mmol/L (136-145); TOTAL PROTEIN 7.2 gm/dL (6.4-8.2)
--- NOTE | 2020-08-10 07:35 | NUR ---
PATIENT CURRENTLY OFF BIPAP AND ON 10L HIFLO NC. SPO2 94%
[2020-08-10 08:00] VITALS: BP 138/57
[2020-08-10 12:00] VITALS: BP 149/57
[2020-08-10 16:00] VITALS: BP 132/63
[2020-08-10 20:00] VITALS: BP 147/64
--- NOTE | 2020-08-10 20:06 | NUR ---
PT. UP IN CHAIR LOOKING OUT OF WINDOW. HEPLOCK IN RH ASYMPT. LUNGS DIMINISHED BILAT, PULSE OX 92% ON 8L NC. ABDOMEN SOFTLY DISTENDED AND NORMO. EDEMA VS OBESITY. PT. STATES SOB WITH ACTIVITY, NONE NOTED AT REST IN CHAIR. RESP. EASY AND REG AT TIME OF ASSESSMENT. SHWETA LUQUE RN
--- NOTE | 2020-08-10 21:06 | NUR ---
PT. COMPLAINTS OF IV ANTIBIOTIC BURNING. IV SITE IN RH CHECKED, NO LEAKING OR SWELLING AT SIGHT, BLOOD RETURN NOTED. NEW IV STARTED IN RIGHT ARM, PT. STATES NO BURNING NOTED AT NEW SITE. BOTH IV'S REMAIN INTACT. ZITHROMAX CURRENTLY RUNNING OVER 2 HRS RATE WAS ADJUSTED TO ACCOMMODATE BURNING INITIALLY. SHWETA LUQUE RN
[2020-08-11] VITALS: BP 139/61
[2020-08-11 04:00] VITALS: BP 136/62; BP 145/62
[2020-08-11 05:48] LABS: ALBUMIN 3.1 gm/dl (3.1-4.5); ALKALINE PHOSPHATASE 93 U/L (45-117); BUN 17 mg/dl (7-24); CHLORIDE 99 mmol/L (98-107); CREATININE 0.73 mg/dL (0.55-1.02); POTASSIUM 3.8 mmol/L (3.5-5.1); SGPT/ALT 39 U/L (12-78); SODIUM 137 mmol/L (136-145); TOTAL PROTEIN 7.5 gm/dL (6.4-8.2)
[2020-08-11 05:50] LABS: SGOT/AST < 3 IU/L (3-35)
[2020-08-11 06:04] LABS: BASO % 0.2 % (0.0-1.0); EOS % 0.1 % (1.0-4.0); HEMATOCRIT 47.3 % (37.0-47.0); LYMPH # 2.8 10*3/uL (1.3-4.4); LYMPH % 22.6 % (27.0-41.0); MEAN CELL VOLUME 89.6 fl (81.0-99.0); MEAN CORPUSCULAR HGB 28.4 pg (27.0-31.0); MEAN CORPUSCULAR HGB CONC 31.7 g/dl (33.0-37.0); MEAN PLATELET VOLUME 8.9 fl (9.6-12.3); MONO # 0.7 10*3/uL (0.1-1.0); MONO % 5.4 % (3.0-9.0); NEUT # 8.9 10*3/uL (2.3-7.9); NEUT % 71.2 % (47.0-73.0); PLATELET COUNT AUTOMATED 305 10*3/uL (130-400); RED BLOOD COUNT 5.28 10*6/uL (4.10-5.10); RED CELL DISTRI WIDTH 14.6 % (0-14.5); WHITE BLOOD COUNT 12.5 10*3/uL (4.8-10.8)
[2020-08-11 08:00] VITALS: BP 134/65
--- NOTE | 2020-08-11 09:00 | NUR ---
alert and oriented x 3, cooperative ambulated around room with a steady gait still requiring high oxygen amounts
--- NOTE | 2020-08-11 10:21 | NUR ---
dr stark here
[2020-08-11 12:00] VITALS: BP 141/79
--- NOTE | 2020-08-11 12:50 | NUR ---
PT RETESTED WITH COVID SWABS X 2, USING THE SWABS THAT LAB HAD SENT FOR EACH SPECIFIC TEST (RAPID AND SENT OUT) NOW LAB HAD CALLED AND INFORMED US THAT THEY SENT THE WRONG SWAB, PT UNWILLING TO BE RESWABBED AT THIS TIME
[2020-08-11 16:00] VITALS: BP 133/53
--- NOTE | 2020-08-11 18:05 | NUR ---
RAPID COVID SWAB SENT
[2020-08-11 20:00] VITALS: BP 135/70
--- NOTE | 2020-08-11 20:10 | NUR ---
PT. RESTING IN BED WATCHING TV. HEP LOCK IN RH ASYMPT. LUNGS DIMINISHED BILAT, PULSE OX 92% ON 6L HFNC. ABDOMEN SOFT ,NONDISTENDED AND NORMO. NO PERIPHERAL EDEMA NOTED. IV IN RIGHT ARM INFILTRATED, DISCONTINUED AT THIS TIME. RESP. EASY AND REG, NO DISTRESS. SOB INCREASING WITH EXERTION. SHWETA LUQUE RN
[2020-08-12] VITALS: BP 113/42
[2020-08-12 04:00] VITALS: BP 117/66
[2020-08-12 06:28] LABS: HEMATOCRIT 48.1 % (37.0-47.0); MEAN CELL VOLUME 89.7 fl (81.0-99.0); MEAN CORPUSCULAR HGB 28.7 pg (27.0-31.0); MEAN PLATELET VOLUME 8.8 fl (9.6-12.3); PLATELET COUNT AUTOMATED 305 10*3/uL (130-400); RED BLOOD COUNT 5.36 10*6/uL (4.10-5.10); RED CELL DISTRI WIDTH 14.6 % (0-14.5); WHITE BLOOD COUNT 12.6 10*3/uL (4.8-10.8)
[2020-08-12 06:32] LABS: CHLORIDE 100 mmol/L (98-107); POTASSIUM 3.3 mmol/L (3.5-5.1); SODIUM 136 mmol/L (136-145)
[2020-08-12 06:36] LABS: ALKALINE PHOSPHATASE 87 U/L (45-117); CREATININE 0.78 mg/dL (0.55-1.02); SGOT/AST 6 IU/L (3-35); SGPT/ALT 28 U/L (12-78); TOTAL PROTEIN 7.1 gm/dL (6.4-8.2)
[2020-08-12 06:39] LABS: BUN 27 mg/dl (7-24)
--- NOTE | 2020-08-12 07:05 | NUR ---
Shift chart check completed.
[2020-08-12 07:26] LABS: PLATELET SUFFICIENCY NORMAL (NORMAL); STOMATOCYTE FEW; TOTAL CELLS COUNTED 100 #CELLS
[2020-08-12 07:27] LABS: ROULEAUX SLIGHT
[2020-08-12 08:00] VITALS: BP 111/62
--- NOTE | 2020-08-12 09:08 | NUR ---
DR SCHMITT ROUNDED - OK TO BE DISCHARGED HOME TODAY
--- NOTE | 2020-08-12 09:47 | NUR ---
Patient remains in isolation. Will follow up at a later time.
[2020-08-12 11:52] VITALS: BP 107/54
--- NOTE | 2020-08-12 12:02 | NUR ---
PATIENT REMAINS IN THE CHAIR AND IS ANXIOUS TO GO HOME.. REQUESTED TO WAIT ON GETTING CLEANED UP UNTIL SHE HEARS IF SHE IS GETTING TO GO HOME FOR SURE.
--- NOTE | 2020-08-12 12:40 | NUR ---
Spoke to respiratory. Waiting for home O2 assessment.
--- NOTE | 2020-08-12 13:30 | NUR ---
HOME O2 ASSESSMENT: PRE BP: 107/54, HR 98, RR 18, PULSE OX 86% ON ROOM AIR AT REST. PLACED 2 L/M ON PATIENT, SAT >88% AT REST- ON 3 L/M SAT >89% AT REST- ON 4 L/M SAT >91% AT REST. AMBULATED PATIENT IN ROOM, PULSE OX 90%-91% ON 4 L/M WHILE AMBULATING. POST BP: 143/70, HR 96, RR 20 RN AND CASE MANAGEMENT NOTIFIED.
--- NOTE | 2020-08-12 13:53 | NUR ---
Spoke to Cecelia in respiratory. Patient qualified for home O2 @ 4L nc. Dr. Patrick notified of the need for an O2 prescription.
--- NOTE | 2020-08-12 14:01 | NUR ---
Received new O2 prescription from Dr. Connors for O2 continuous 4L NC 24 hours per day. Spoke to Lanie at [facility] regarding new O2 referral. They do take [employer] insurance. Faxed referral. Awaiting response.
[2020-08-12] MEDS ORDERED: DOXYCYCLINE100 M3 PO (14:10)
[2020-08-12] MEDS ORDERED: OXYGEN NAS (14:10)
--- NOTE | 2020-08-12 14:44 | NUR ---
Received call from Barbie at [facility]. Faxed H&P and progress notes to [facility]. Informed patient will need an O2 tank to go home with and patient is in ICCU 2. Awaiting O2 tank to be delivered.
--- NOTE | 2020-08-12 14:50 | NUR ---
MOVED AFTER SEEN BY DR QUINTANA - AWAITING HOME O2 TO BE SET UP THEN DISCHARGED..REPORT TO Monique ARIAS RN
--- NOTE | 2020-08-12 15:05 | NUR ---
Faxed discharge summary to [facility] and spoke to Barbie at [facility] to notify of room change. Stain Applicator is currently on his way. Nurse notified.
--- NOTE | 2020-08-12 16:10 | NUR ---
Discharge instructions reviewed with patient/family. Patient receptive and verbalizes understanding. Follow-up care arranged. Written instructions given to patient/family. KASSANDRA ARIAS
== END 2020-08-12 16:10 | disposition home or self-care (01) | DRG 871 ==
LOC: ED 13:46 → EDHOLD 17:56 → ICCU 17:56 → EDHOLD 18:01 → 4E 19:06 → ICCU 19:48 → 4E 08-12 14:30
PROVIDERS: Internal Medicine; Internal Medicine Critical Care Medicine; Physician Assistant; ADMIT Internal Medicine; ATTEND Internal Medicine
DX: A41.9 Sepsis, unspecified organism (principal); J18.9 Pneumonia, unspecified organism; J96.02 Acute respiratory failure with hypercapnia; J96.01 Acute respiratory failure with hypoxia; D68.62 Lupus anticoagulant syndrome; D68.9 Coagulation defect, unspecified; E87.1 Hypo-osmolality and hyponatremia; J44.1 Chronic obstructive pulmonary disease with (acute) exacerbation; Z68.41 Body mass index [BMI] 40.0-44.9, adult; J44.0 Chronic obstructive pulmonary disease with (acute) lower respiratory infection; R73.03 Prediabetes; F32.9 Major depressive disorder, single episode, unspecified; E78.5 Hyperlipidemia, unspecified; R65.20 Severe sepsis without septic shock; E87.8 Other disorders of electrolyte and fluid balance, not elsewhere classified; R73.9 Hyperglycemia, unspecified; E66.01 Morbid (severe) obesity due to excess calories; F17.210 Nicotine dependence, cigarettes, uncomplicated; Z20.828 Contact with and (suspected) exposure to other viral communicable diseases; Z86.718 Personal history of other venous thrombosis and embolism; Z88.2 Allergy status to sulfonamides; Z88.8 Allergy status to other drugs, medicaments and biological substances; Z90.710 Acquired absence of both cervix and uterus; Z83.79 Family history of other diseases of the digestive system; Z86.73 Personal history of transient ischemic attack (TIA), and cerebral infarction without residual deficits; Z71.6 Tobacco abuse counseling; Z79.899 Other long term (current) drug therapy

== ENCOUNTER 2020-11-29 13:12 | Emergency (ER) | payer BC ==
[~2020-11-29] VITALS: Ht 172.7 cm; Wt 122.5 kg
[2020-11-29] VITALS (15 sets, daily range): BP systolic 86–149; BP diastolic 40–74
[~2020-11-29 13:12] MED LIST changes: +DOXYCYCLINE100 M3 PO; +ESCITALOPRAM OX20 MG PO; +OXYGEN NAS; +XARELTO10 MG PO
[2020-11-29 13:48] LABS: BASO % 0.2 % (0.0-1.0); EOS # 0.1 10*3/uL (0.0-0.4); EOS % 1.2 % (1.0-4.0); HEMATOCRIT 51.3 % (37.0-47.0); LYMPH # 2.8 10*3/uL (1.3-4.4); LYMPH % 32.4 % (27.0-41.0); MEAN CELL VOLUME 88.1 fl (81.0-99.0); MEAN CORPUSCULAR HGB CONC 32.9 g/dl (33.0-37.0); MEAN PLATELET VOLUME 8.7 fl (9.6-12.3); MONO % 11.4 % (3.0-9.0); NEUT # 4.7 10*3/uL (2.3-7.9); NEUT % 54.6 % (47.0-73.0); PLATELET COUNT AUTOMATED 390 10*3/uL (130-400); RED BLOOD COUNT 5.82 10*6/uL (4.10-5.10); WHITE BLOOD COUNT 8.6 10*3/uL (4.8-10.8)
[2020-11-29 13:59] LABS: ACT PARTIAL THROMBO TIME 32.4 SECONDS (20.0-32.1); INTERNATIONAL NORM RATIO 1.2 (2.0-3.5)
[2020-11-29 14:04] LABS: ALBUMIN 3.3 gm/dl (3.1-4.5); ALKALINE PHOSPHATASE 101 U/L (45-117); BUN 15 mg/dl (7-24); CHLORIDE 105 mmol/L (98-107); CREATININE 1.05 mg/dL (0.55-1.02); LIPASE 30 U/L (73-393); POTASSIUM 3.4 mmol/L (3.5-5.1); SGOT/AST 13 IU/L (3-35); SGPT/ALT 29 U/L (12-78); SODIUM 137 mmol/L (136-145); TOTAL PROTEIN 7.6 gm/dL (6.4-8.2)
[2020-11-29 14:05] LABS: TROPONIN I < 0.015 ng/ml (<0.045)
[2020-11-29 16:42] LABS: ABG BASE EXCESS -1.2 mmol/L (-2.0-2.0); ARTERIAL BLOOD GAS PH 7.328 (7.35-7.45)
== END 2020-11-29 22:59 | disposition left against medical advice (07) ==
LOC: ED 13:12 → EDHOLD 17:01
PROVIDERS: Emergency Medicine
DX: J96.02 Acute respiratory failure with hypercapnia (principal); Z20.828 Contact with and (suspected) exposure to other viral communicable diseases; J96.01 Acute respiratory failure with hypoxia; R79.1 Abnormal coagulation profile

== ENCOUNTER 2021-01-10 21:29 | Emergency (ER) | payer MEDICAID ==
[~2021-01-10] VITALS: Ht 172.7 cm; Wt 122.5 kg
[2021-01-10 21:41] VITALS: BP 132/80
[2021-01-10] MEDS ORDERED: FLUCONAZOLE150 MG PO (22:07)
[2021-01-10] MEDS ORDERED: SPIRIVA RESPIMAT4 GM INH (22:07)
[2021-01-10] MEDS ORDERED: ATORVASTATIN CA20 M1 PO (22:07)
[2021-01-10] MEDS ORDERED: JARDIANCE10 MG PO (22:08)
[2021-01-10] MEDS ORDERED: CHLORHEXIDINE473 M1 PO (22:08)
[2021-01-10] MEDS ORDERED: TRULICITY0.75 MG/0. SC (22:10)
[2021-01-10] MEDS ORDERED: HUMALOG100 UNIT/1 SQ (22:10)
[2021-01-10 22:22] LABS: HEMATOCRIT 45.8 % (37.0-47.0); MEAN CORPUSCULAR HGB 29.5 pg (27.0-31.0); MEAN CORPUSCULAR HGB CONC 32.8 g/dl (33.0-37.0); MEAN PLATELET VOLUME 8.7 fl (9.6-12.3); PLATELET COUNT AUTOMATED 347 10*3/uL (130-400); RED BLOOD COUNT 5.09 10*6/uL (4.10-5.10); RED CELL DISTRI WIDTH 14.3 % (0-14.5); WHITE BLOOD COUNT 15.7 10*3/uL (4.8-10.8)
[2021-01-10 22:37] LABS: ALBUMIN 3.4 gm/dl (3.1-4.5); ALKALINE PHOSPHATASE 106 U/L (45-117); BUN 10 mg/dl (7-24); CHLORIDE 103 mmol/L (98-107); CREATININE 0.93 mg/dL (0.55-1.02); LIPASE 31 U/L (73-393); POTASSIUM 3.3 mmol/L (3.5-5.1); SGOT/AST 8 IU/L (3-35); SGPT/ALT 29 U/L (12-78); SODIUM 139 mmol/L (136-145)
[2021-01-10 22:40] LABS: PLATELET SUFFICIENCY NORMAL (NORMAL); TOTAL CELLS COUNTED 100 #CELLS
[2021-01-10 23:28] LABS: BILIRUBIN Negative (Negative); BLOOD Negative (Negative); CLARITY Clear (Clear); COLOR Yellow (Yellow); GLUCOSE Negative (Negative); KETONE Negative (Negative); LEUKO ESTERASE Negative (Negative); NITRITE Negative (Negative); UROBILINOGEN 0.2 E.U./dl (0.0-1.0)
[2021-01-10 23:35] LABS: RBC 0-2 rbc/hpf (0-2); WBC 0-2 wbc/hpf (0-5)
[2021-01-11] MEDS ORDERED: DICYCLOMINE HCL20 MG PO (00:42)
[2021-01-11] MEDS ORDERED: LEVOFLOXACIN500 MG PO (00:42)
== END 2021-01-11 01:48 | disposition home or self-care (01) ==
LOC: ED 21:29
PROVIDERS: Emergency Medicine
DX: D35.02 Benign neoplasm of left adrenal gland (principal); R59.1 Generalized enlarged lymph nodes; Z88.2 Allergy status to sulfonamides; Z88.8 Allergy status to other drugs, medicaments and biological substances; Z79.899 Other long term (current) drug therapy; Z79.4 Long term (current) use of insulin; Z98.51 Tubal ligation status; Z90.711 Acquired absence of uterus with remaining cervical stump; Z87.891 Personal history of nicotine dependence

== ENCOUNTER → 2021-05-20 | Outpatient (CLI) | payer BC, OTHER ==
[~2021-05-20] MED LIST changes: +ATORVASTATIN CA20 M1 PO; +CHLORHEXIDINE473 M1 PO; +DICYCLOMINE HCL20 MG PO; +FLUCONAZOLE150 MG PO; +HUMALOG100 UNIT/1 SQ; +JARDIANCE10 MG PO; +SPIRIVA RESPIMAT4 GM INH; +TRULICITY0.75 MG/0. SC
== END | disposition home or self-care (01) ==
LOC: MAMMO 07:48
PROVIDERS: ATTEND Preventive Medicine Occupational Medicine
DX: N64.4 Mastodynia (principal)

== ENCOUNTER 2021-09-13 13:33 | Emergency (ER) | payer OTHER ==
[~2021-09-13] VITALS: Ht 172.7 cm; Wt 117.9 kg
[2021-09-13 13:42] VITALS: BP 138/76
[2021-09-13 14:01] LABS: BILIRUBIN Negative (Negative); BLOOD Negative (Negative); CLARITY Cloudy (Clear); COLOR Yellow (Yellow); GLUCOSE 3+ (Negative); KETONE Trace (Negative); LEUKO ESTERASE Trace (Negative); NITRITE Negative (Negative); PH 5.5 (4.5-8.0); SPECIFIC GRAVITY >= 1.030 (1.001-1.030)
[2021-09-13 14:25] LABS: BACTERIA 3+; RBC 0-2 rbc/hpf (0-2)
[2021-09-13] MEDS ORDERED: PYRIDIUM200 M1 PO (14:49)
[2021-09-13] MEDS ORDERED: CEFUROXIME AXE500 MG PO (14:49)
== END 2021-09-13 15:22 | disposition home or self-care (01) ==
LOC: ED 13:33
PROVIDERS: Physician Assistant
DX: N39.0 Urinary tract infection, site not specified (principal); F17.210 Nicotine dependence, cigarettes, uncomplicated; Z88.2 Allergy status to sulfonamides; Z88.8 Allergy status to other drugs, medicaments and biological substances; Z79.899 Other long term (current) drug therapy

== ENCOUNTER 2021-09-27 09:52 | Emergency (ER) | payer OTHER ==
[~2021-09-27] VITALS: Wt 117.9 kg
[2021-09-27 10:02] VITALS: BP 133/51
[2021-09-27 11:14] LABS: BASO # 0.1 10*3/uL (0.0-0.1); BASO % 0.6 % (0.0-1.0); EOS # 0.3 10*3/uL (0.0-0.4); EOS % 2.8 % (1.0-4.0); LYMPH # 3.2 10*3/uL (1.3-4.4); LYMPH % 30.7 % (27.0-41.0); MEAN CELL VOLUME 90.4 fl (81.0-99.0); MEAN CORPUSCULAR HGB 28.7 pg (27.0-31.0); MEAN CORPUSCULAR HGB CONC 31.7 g/dl (33.0-37.0); MEAN PLATELET VOLUME 8.7 fl (9.6-12.3); MONO # 0.6 10*3/uL (0.1-1.0); MONO % 5.7 % (3.0-9.0); NEUT # 6.2 10*3/uL (2.3-7.9); NEUT % 59.6 % (47.0-73.0); PLATELET COUNT AUTOMATED 378 10*3/uL (130-400); RED BLOOD COUNT 5.09 10*6/uL (4.10-5.10); RED CELL DISTRI WIDTH 15.9 % (0-14.5); WHITE BLOOD COUNT 10.4 10*3/uL (4.8-10.8)
[2021-09-27 11:34] LABS: ALBUMIN 3.3 gm/dl (3.1-4.5); ALKALINE PHOSPHATASE 110 U/L (45-117); BUN 12 mg/dl (7-24); CHLORIDE 101 mmol/L (98-107); CREATININE 0.93 mg/dL (0.55-1.02); POTASSIUM 4.1 mmol/L (3.5-5.1); SGOT/AST 22 IU/L (3-35); SGPT/ALT 29 U/L (12-78); SODIUM 139 mmol/L (136-145); TOTAL PROTEIN 7.9 gm/dL (6.4-8.2)
== END 2021-09-27 12:45 | disposition home or self-care (01) ==
LOC: ED 09:52
PROVIDERS: Emergency Medicine
DX: M79.604 Pain in right leg (principal); M79.605 Pain in left leg; J44.9 Chronic obstructive pulmonary disease, unspecified; Z86.73 Personal history of transient ischemic attack (TIA), and cerebral infarction without residual deficits; E66.01 Morbid (severe) obesity due to excess calories; F17.200 Nicotine dependence, unspecified, uncomplicated; Z88.2 Allergy status to sulfonamides; Z88.8 Allergy status to other drugs, medicaments and biological substances; Z79.899 Other long term (current) drug therapy

== ENCOUNTER 2024-11-12 09:03 | Inpatient (IN) | payer OTHER ==
[~2024-11-12] VITALS: Ht 172.7 cm; Wt 117.7 kg
[2024-11-12 09:15] VITALS: BP 92/58
[2024-11-12] MEDS ORDERED: BENZONATATE 100 MG CAP PO ONE (09:25)
[2024-11-12 10:46] LABS: BASO # 0.1 10*3/uL (0.0-0.1); BASO % 0.3 % (0.0-1.0); EOS % 0.2 % (1.0-4.0); HEMATOCRIT 45.2 % (37.0-47.0); MEAN CELL VOLUME 89.9 fl (81.0-99.0); MEAN CORPUSCULAR HGB 29.6 pg (27.0-31.0); MEAN PLATELET VOLUME 8.5 fl (9.6-12.3); MONO # 1.3 10*3/uL (0.1-1.0); MONO % 7.1 % (3.0-9.0); NEUT # 14.3 10*3/uL (2.3-7.9); NEUT % 80.6 % (47.0-73.0); PLATELET COUNT AUTOMATED 222 10*3/uL (130-400); RED BLOOD COUNT 5.03 10*6/uL (4.10-5.10); RED CELL DISTRI WIDTH 13.2 % (0-14.5); WHITE BLOOD COUNT 17.7 10*3/uL (4.8-10.8)
[2024-11-12 11:05] LABS: BUN 13 mg/dl (9-23); CHLORIDE 101 mmol/L (98-107); POTASSIUM 3.5 mmol/L (3.4-5.1)
[2024-11-12] MEDS ORDERED: SODIUM CHLORIDE 0.9% 1,000 ML IV SCH (11:05)
[2024-11-12] MEDS ORDERED: Ceftriaxone Sodium 1 GM/10 ML SYR IV ONE (11:25)
[2024-11-12] MEDS ORDERED: AZITHROMYCIN 250 MG TAB PO ONE (11:25)
[2024-11-12] MEDS ORDERED: Albuterol Sulf/Ipratropium 3 ML VIAL NEB ONE (11:55)
[2024-11-12 12:21] VITALS: BP 104/47
[2024-11-12] MEDS ORDERED: LANTUS100 UNIT/1 SC (12:54)
[2024-11-12] MEDS ORDERED: OZEMPIC0.25 MG/03 SQ (12:56)
[2024-11-12] MEDS ORDERED: BREZTRI AEROS10.7 GM INH (12:59)
[2024-11-12] MEDS ORDERED: NATURE'S BLEND F1 MG PO (13:00)
[2024-11-12 13:17] VITALS: BP 103/56
[2024-11-12] MEDS ORDERED: ACETAMINOPHEN 325 MG TAB PO PRN (14:20)
[2024-11-12] MEDS ORDERED: BISACODYL 5 MG TAB PO PRN (14:20)
[2024-11-12] MEDS ORDERED: DEXTROSE 10 % IN WATER 250 ML IV PRN (14:35)
[2024-11-12] MEDS ORDERED: methylPREDNISolone sod succ 125 MG VIAL IV SCH (14:55)
[2024-11-12] MEDS ORDERED: Albuterol Sulf/Ipratropium 3 ML VIAL NEB PRN (14:55)
[2024-11-12] MEDS ORDERED: SODIUM CHLORIDE 0.9% 100 ML BAG IV ONE (15:10)
[2024-11-12] MEDS ORDERED: IOHEXOL 350 MG/ML 100 ML VIAL IV ONE (15:10)
[2024-11-12] MEDS ORDERED: INSULIN LISPRO 1 UNIT/0.01 ML SQ SCH (16:30)
[2024-11-12 16:38] VITALS: BP 104/51
[2024-11-12 17:13] LABS: BILIRUBIN Negative (Negative); BLOOD Negative (Negative); CLARITY Clear (Clear); COLOR Yellow (Yellow); GLUCOSE 1+ (Negative); KETONE Negative (Negative); LEUKO ESTERASE Negative (Negative); NITRITE Negative (Negative); PH 5.5 (4.5-8.0); SPECIFIC GRAVITY >= 1.030 (1.001-1.030)
[2024-11-12 17:32] LABS: WBC 0-2 wbc/hpf (0-5)
[2024-11-12] MEDS ORDERED: ATORVASTATIN CALCIUM 20 MG TAB PO SCH (18:00)
[2024-11-12 19:54] VITALS: BP 139/70
[2024-11-12] MEDS ORDERED: GUAIFENESIN 600 MG TAB ER PO SCH (22:00)
[2024-11-12] MEDS ORDERED: Enoxaparin Sodium 120 MG/0.8 ML SYR SC SCH (22:00)
[2024-11-13 05:15] LABS: ALKALINE PHOSPHATASE 92 U/L (46-116); BUN 9 mg/dl (9-23); CHLORIDE 106 mmol/L (98-107); CHOLESTEROL 150 mg/dL (<200); LDL CHOLESTEROL 96 mg/dL (9-159); POTASSIUM 4.2 mmol/L (3.4-5.1); SGPT/ALT 11 U/L (5-49); TOTAL PROTEIN 6.8 gm/dL (6.0-8.0); TRIGLYCERIDES 91 mg/dl (<150)
[2024-11-13 06:12] LABS: HEMATOCRIT 43.7 % (37.0-47.0); MEAN CELL VOLUME 91.6 fl (81.0-99.0); MEAN CORPUSCULAR HGB 29.4 pg (27.0-31.0); MEAN PLATELET VOLUME 9.1 fl (9.6-12.3); PLATELET COUNT AUTOMATED 223 10*3/uL (130-400); RED BLOOD COUNT 4.77 10*6/uL (4.10-5.10); RED CELL DISTRI WIDTH 13.2 % (0-14.5)
[2024-11-13 06:51] VITALS: BP 129/77
[2024-11-13 06:58] LABS: MANUAL DIFF REFLEX YES
[2024-11-13 07:24] LABS: ACT PARTIAL THROMBO TIME 33.5 SECONDS (20.0-32.1)
[2024-11-13] MEDS ORDERED: WARFARIN SODIUM 5 MG TAB PO SCH ×2 (07:30→18:00)
[2024-11-13 07:43] LABS: PLATELET SUFFICIENCY NORMAL (NORMAL); TOTAL CELLS COUNTED 100 #CELLS
[2024-11-13 08:00] VITALS: BP 128/73
[2024-11-13] MEDS ORDERED: AZITHROMYCIN 250 ML IV SCH (10:00)
[2024-11-13] MEDS ORDERED: Enoxaparin Sodium 120 MG/0.8 ML SYR SC SCH (10:00)
[2024-11-13] MEDS ORDERED: Cholecalciferol 2,000 UNIT TABLET (50 MCG) PO SCH (10:00)
[2024-11-13] MEDS ORDERED: METOPROLOL SUCCINATE XR 25 MG TAB PO SCH (10:00)
[2024-11-13] MEDS ORDERED: Nicotine 21 MG PATCH T SCH (10:00)
[2024-11-13] MEDS ORDERED: HYDROCHLOROTHIAZIDE 12.5 MG CAP PO SCH (10:00)
[2024-11-13] MEDS ORDERED: RIVAROXABAN 10 MG TAB PO SCH (10:00)
[2024-11-13] MEDS ORDERED: Losartan Potassium 50 MG TAB PO SCH (10:00)
[2024-11-13] MEDS ORDERED: Insulin Glargine, Recombinan 1 UNIT/0.01 ML SC SCH (10:00)
[2024-11-13] MEDS ORDERED: FOLIC ACID 1 MG TAB PO SCH (10:00)
[2024-11-13] MEDS ORDERED: Ceftriaxone Sodium 1 GM in SYRINGE INFUSION 10 ML IV SCH (11:00)
[2024-11-13] MEDS ORDERED: Perflutren Protein Type A Mi 2 ML VIAL IV ONE (12:11)
[2024-11-13] MEDS ORDERED: Phosphorus/Potassium 1.45 GM PACKET PO ONE (13:15)
[2024-11-13 13:44] VITALS: BP 137/70
[2024-11-13 14:42] VITALS: BP 146/68
[2024-11-13 16:00] VITALS: BP 149/71
[2024-11-13 20:00] VITALS: BP 137/62
[2024-11-13] MEDS ORDERED: methylPREDNISolone sod succ 125 MG VIAL IV SCH (22:00)
[2024-11-14] VITALS: BP 152/69
[2024-11-14 06:54] LABS: BUN 15 mg/dl (9-23); CHLORIDE 103 mmol/L (98-107); FREE T4 1.04 ng/dl (0.89-1.76)
[2024-11-14 08:00] VITALS: BP 154/66
[2024-11-14] MEDS ORDERED: EMPAGLIFLOZIN 10 MG TABLET PO SCH (10:00)
[2024-11-14] MEDS ORDERED: Cholecalciferol 2,000 UNIT TABLET (50 MCG) PO SCH (10:00)
[2024-11-14 12:00] VITALS: BP 136/54
[2024-11-14] MEDS ORDERED: MED. FROM HOME 1 EACH EA INH SCH (13:48)
[2024-11-14] MEDS ORDERED: WARFARIN SODIUM 6 MG TAB PO ONE (14:35)
[2024-11-14 16:00] VITALS: BP 130/60
[2024-11-14] MEDS ORDERED: WARFARIN SODIUM 6 MG TAB PO SCH (18:00)
[2024-11-14 20:00] VITALS: BP 165/83
[2024-11-14] MEDS ORDERED: CEFDINIR300 MG PO (22:34)
[2024-11-14] MEDS ORDERED: AZITHROMYCIN500 M2 PO (22:34)
[2024-11-15] VITALS: BP 140/62
[2024-11-15 04:00] VITALS: BP 152/68
[2024-11-15] MEDS ORDERED: HYDROmorphONE Hydrochloride 0.5 MG/0.5 ML SYRINGE IV ONE (04:20)
[2024-11-15] MEDS ORDERED: CAFFEI PO ONE (07:15)
[2024-11-15] MEDS ORDERED: ACETAMINOPHEN PO ONE (07:15)
[2024-11-15] MEDS ORDERED: ASPIRIN PO ONE (07:15)
[2024-11-15 08:00] VITALS: BP 154/86
[2024-11-15] MEDS ORDERED: CLONIDINE HCL0.1 MG PO (09:15)
[2024-11-15] MEDS ORDERED: cloNIDine Hydrochloride 0.1 MG TAB PO PRN (09:40)
[2024-11-15] MEDS ORDERED: Insulin Glargine, Recombinan 1 UNIT/0.01 ML SC SCH (10:00)
[2024-11-15] MEDS ORDERED: HYDROCHLOROTHIAZIDE 25 MG TAB PO SCH (10:00)
[2024-11-15] MEDS ORDERED: Ketorolac Tromethamine 30 MG/ML VIAL IV ONE ×2 (10:00→21:25)
[2024-11-15 12:00] VITALS: BP 154/89
[2024-11-15 16:00] VITALS: BP 151/68
[2024-11-15 20:00] VITALS: BP 153/83
[2024-11-16] VITALS: BP 151/84
[2024-11-16 08:00] VITALS: BP 130/69
[2024-11-16] MEDS ORDERED: MEDROL DOSEPAK4 MG PO (11:32)
== END 2024-11-16 12:30 | disposition home or self-care (01) | DRG 871 ==
LOC: ED 09:03 → 4E 12:06 → EDHOLD 12:06 → 4E 11-13 14:06
PROVIDERS: Internal Medicine; Student in an Organized Health Care Education/Training Program; ADMIT Internal Medicine; ATTEND Internal Medicine
PROC: 5A0935A Assistance with Respiratory Ventilation, Less than 24 Consecutive Hours, High Flow/Velocity Cannula (ICD-10-PCS; principal; 2024-11-12)
PROC: 5A0935A Assistance with Respiratory Ventilation, Less than 24 Consecutive Hours, High Flow/Velocity Cannula (ICD-10-PCS; 2024-11-13)
PROC: 5A0935A Assistance with Respiratory Ventilation, Less than 24 Consecutive Hours, High Flow/Velocity Cannula (ICD-10-PCS; 2024-11-14)
DX: A41.9 Sepsis, unspecified organism (principal); J18.9 Pneumonia, unspecified organism; J96.01 Acute respiratory failure with hypoxia; E87.1 Hypo-osmolality and hyponatremia; G45.9 Transient cerebral ischemic attack, unspecified; J44.1 Chronic obstructive pulmonary disease with (acute) exacerbation; D68.62 Lupus anticoagulant syndrome; J44.0 Chronic obstructive pulmonary disease with (acute) lower respiratory infection; F33.9 Major depressive disorder, recurrent, unspecified; D84.9 Immunodeficiency, unspecified; E05.90 Thyrotoxicosis, unspecified without thyrotoxic crisis or storm; E11.65 Type 2 diabetes mellitus with hyperglycemia; R65.20 Severe sepsis without septic shock; E66.01 Morbid (severe) obesity due to excess calories; F17.200 Nicotine dependence, unspecified, uncomplicated; G43.909 Migraine, unspecified, not intractable, without status migrainosus; G44.89 Other headache syndrome; E78.2 Mixed hyperlipidemia; F17.210 Nicotine dependence, cigarettes, uncomplicated; E83.39 Other disorders of phosphorus metabolism; E83.51 Hypocalcemia; Z20.822 Contact with and (suspected) exposure to COVID-19; J98.4 Other disorders of lung; R33.9 Retention of urine, unspecified; I10 Essential (primary) hypertension; Z79.4 Long term (current) use of insulin; Z86.718 Personal history of other venous thrombosis and embolism; Z71.6 Tobacco abuse counseling; Z90.710 Acquired absence of both cervix and uterus; Z98.51 Tubal ligation status; Z79.01 Long term (current) use of anticoagulants; Z80.0 Family history of malignant neoplasm of digestive organs; Z88.2 Allergy status to sulfonamides; Z88.8 Allergy status to other drugs, medicaments and biological substances; Z79.51 Long term (current) use of inhaled steroids; Z79.899 Other long term (current) drug therapy; Z79.2 Long term (current) use of antibiotics; Z68.39 Body mass index [BMI] 39.0-39.9, adult

== ENCOUNTER 2024-11-25 21:39 | Inpatient (IN) | payer OTHER ==
[~2024-11-25] VITALS: Ht 172.7 cm; Wt 110.8 kg
[~2024-11-25 21:39] MED LIST changes: +AZITHROMYCIN500 M2 PO; +BREZTRI AEROS10.7 GM INH; +CEFDINIR300 MG PO; +CLONIDINE HCL0.1 MG PO; +LANTUS100 UNIT/1 SC; +NATURE'S BLEND F1 MG PO; +OZEMPIC0.25 MG/03 SQ
[2024-11-25 21:51] VITALS: BP 128/57
[2024-11-25] MEDS ORDERED: Dexamethasone Sodium Phospha 4 MG/ML VIAL IV ONE (22:00)
[2024-11-25 22:24] LABS: BASO # 0.1 10*3/uL (0.0-0.1); BASO % 0.5 % (0.0-1.0); HEMATOCRIT 44.4 % (37.0-47.0); MEAN CELL VOLUME 87.2 fl (81.0-99.0); MEAN CORPUSCULAR HGB 28.9 pg (27.0-31.0); MEAN CORPUSCULAR HGB CONC 33.1 g/dl (33.0-37.0); MEAN PLATELET VOLUME 8.6 fl (9.6-12.3); MONO % 9.3 % (3.0-9.0); NEUT # 7.5 10*3/uL (2.3-7.9); NEUT % 71.3 % (47.0-73.0); PLATELET COUNT AUTOMATED 199 10*3/uL (130-400); RED BLOOD COUNT 5.09 10*6/uL (4.10-5.10); RED CELL DISTRI WIDTH 13.8 % (0-14.5); WHITE BLOOD COUNT 10.5 10*3/uL (4.8-10.8)
[2024-11-25 22:43] LABS: BUN 18 mg/dl (9-23); CHLORIDE 93 mmol/L (98-107); POTASSIUM 3.3 mmol/L (3.4-5.1)
[2024-11-25] MEDS ORDERED: AZITHROMYCIN 250 ML IV ONE (22:50)
[2024-11-25] MEDS ORDERED: SODIUM CHLORIDE 0.9% 1,000 ML IV SCH (22:50)
[2024-11-25] MEDS ORDERED: Ceftriaxone Sodium 1 GM/10 ML SYR IV ONE (22:50)
[2024-11-25] MEDS ORDERED: POTASSIUM CHLORIDE 20 MEQ TAB PO ONE (23:15)
[2024-11-25] MEDS ORDERED: Ondansetron Hydrochloride 4 MG TAB SL ONE (23:45)
[2024-11-26 00:06] VITALS: BP 104/61
[2024-11-26 06:57] VITALS: BP 124/79
[2024-11-26] MEDS ORDERED: INSULIN LISPRO 1 UNIT/0.01 ML SQ SCH (11:00)
[2024-11-26] MEDS ORDERED: Albuterol Sulf/Ipratropium 3 ML VIAL NEB SCH (11:01)
[2024-11-26 11:48] VITALS: BP 123/43
[2024-11-26 12:03] VITALS: BP 145/67
[2024-11-26] MEDS ORDERED: POTASSIUM CHLORIDE 20 MEQ TAB PO ONE (13:00)
[2024-11-26] MEDS ORDERED: METFORMIN850 MG PO (13:07)
[2024-11-26] MEDS ORDERED: XARELTO20 M1 PO (13:09)
[2024-11-26] MEDS ORDERED: Doxycycline Hyclate 100 MG CAP PO SCH (15:50)
[2024-11-26 16:00] VITALS: BP 110/47
[2024-11-26 16:29] LABS: ABG O2 SATURATION 93.3 % (94.0-98.0); ARTERIAL BLOOD GAS PH 7.421 (7.350-7.450); ARTERIAL BLOOD GAS PO2 61.9 mmHg (83.0-108.0)
[2024-11-26] MEDS ORDERED: CEFEPIME HCL IN DEXTROSE 5 % 50 ML IV SCH (16:30)
[2024-11-26] MEDS ORDERED: Metformin 500 MG EXTENDED-RELEASE TABLET PO SCH (16:30)
[2024-11-26 18:39] LABS: BILIRUBIN Negative (Negative); BLOOD Negative (Negative); CLARITY Clear (Clear); COLOR Yellow (Yellow); GLUCOSE Negative (Negative); KETONE Negative (Negative); LEUKO ESTERASE Negative (Negative); NITRITE Negative (Negative); PH 5.5 (4.5-8.0); UROBILINOGEN 0.2 E.U./dl (0.0-1.0)
[2024-11-26 18:47] LABS: WBC 0-2 wbc/hpf (0-5)
[2024-11-26 20:00] VITALS: BP 108/64
[2024-11-26] MEDS ORDERED: RIVAROXABAN 20 MG TAB PO SCH (22:00)
[2024-11-27] VITALS: BP 127/79
[2024-11-27 06:29] LABS: BASO % 0.3 % (0.0-1.0); EOS # 0.1 10*3/uL (0.0-0.4); EOS % 1.1 % (1.0-4.0); HEMATOCRIT 41.9 % (37.0-47.0); MEAN CELL VOLUME 89.3 fl (81.0-99.0); MEAN CORPUSCULAR HGB 29.4 pg (27.0-31.0); MEAN CORPUSCULAR HGB CONC 32.9 g/dl (33.0-37.0); MONO # 0.7 10*3/uL (0.1-1.0); MONO % 10.4 % (3.0-9.0); NEUT # 3.7 10*3/uL (2.3-7.9); NEUT % 58.8 % (47.0-73.0); PLATELET COUNT AUTOMATED 179 10*3/uL (130-400); RED BLOOD COUNT 4.69 10*6/uL (4.10-5.10); RED CELL DISTRI WIDTH 13.7 % (0-14.5); WHITE BLOOD COUNT 6.3 10*3/uL (4.8-10.8)
[2024-11-27] MEDS ORDERED: DEXTROSE 10 % IN WATER 250 ML IV PRN (06:35)
[2024-11-27 06:57] LABS: BUN 13 mg/dl (9-23); CHLORIDE 101 mmol/L (98-107); POTASSIUM 3.7 mmol/L (3.4-5.1)
[2024-11-27] MEDS ORDERED: INSULIN REGULAR, HUMAN 1 UNIT/0.01 ML SC SCH (07:30)
[2024-11-27 08:00] VITALS: BP 120/58
[2024-11-27] MEDS ORDERED: Losartan Potassium 50 MG TAB PO SCH (10:00)
[2024-11-27] MEDS ORDERED: RIVAROXABAN 10 MG TAB PO SCH (10:00)
[2024-11-27] MEDS ORDERED: Insulin Glargine, Recombinan 1 UNIT/0.01 ML SC SCH (10:00)
[2024-11-27] MEDS ORDERED: HYDROCHLOROTHIAZIDE 25 MG TAB PO SCH (10:00)
[2024-11-27] MEDS ORDERED: EMPAGLIFLOZIN 10 MG TABLET PO SCH (10:00)
[2024-11-27] MEDS ORDERED: METOPROLOL SUCCINATE XR 25 MG TAB PO SCH (10:00)
[2024-11-27 12:00] VITALS: BP 116/48
[2024-11-27] MEDS ORDERED: methylPREDNISolone sod succ 40 MG VIAL IV SCH (12:50)
[2024-11-27 16:00] VITALS: BP 107/57
[2024-11-27 20:00] VITALS: BP 135/56
[2024-11-28] VITALS: BP 112/45
[2024-11-28 06:49] LABS: HEMATOCRIT 39.7 % (37.0-47.0); MEAN CELL VOLUME 89.4 fl (81.0-99.0); MEAN CORPUSCULAR HGB 29.1 pg (27.0-31.0); MEAN CORPUSCULAR HGB CONC 32.5 g/dl (33.0-37.0); PLATELET COUNT AUTOMATED 199 10*3/uL (130-400); RED BLOOD COUNT 4.44 10*6/uL (4.10-5.10); RED CELL DISTRI WIDTH 13.7 % (0-14.5); WHITE BLOOD COUNT 6.7 10*3/uL (4.8-10.8)
[2024-11-28 07:07] LABS: MANUAL DIFF REFLEX YES
[2024-11-28 07:42] LABS: BUN 13 mg/dl (9-23); CHLORIDE 100 mmol/L (98-107); POTASSIUM 4.1 mmol/L (3.4-5.1)
[2024-11-28 08:00] VITALS: BP 107/51
[2024-11-28 08:54] LABS: ATYPICAL LYMPHS 6 % (0-0); PLATELET SUFFICIENCY NORMAL (NORMAL); TOTAL CELLS COUNTED 100 #CELLS
[2024-11-28] MEDS ORDERED: OXYGEN NAS (10:51)
[2024-11-28 12:00] VITALS: BP 113/59
[2024-11-28 16:00] VITALS: BP 141/66
[2024-11-28 20:00] VITALS: BP 126/52
[2024-11-29] VITALS: BP 128/54
[2024-11-29 06:20] LABS: HEMATOCRIT 40.6 % (37.0-47.0); MEAN CORPUSCULAR HGB 29.8 pg (27.0-31.0); MEAN CORPUSCULAR HGB CONC 33.5 g/dl (33.0-37.0); MEAN PLATELET VOLUME 8.7 fl (9.6-12.3); PLATELET COUNT AUTOMATED 224 10*3/uL (130-400); RED BLOOD COUNT 4.56 10*6/uL (4.10-5.10); RED CELL DISTRI WIDTH 13.5 % (0-14.5); WHITE BLOOD COUNT 9.4 10*3/uL (4.8-10.8)
[2024-11-29 06:41] LABS: MANUAL DIFF REFLEX YES
[2024-11-29 07:08] LABS: BUN 14 mg/dl (9-23); CHLORIDE 102 mmol/L (98-107); POTASSIUM 3.6 mmol/L (3.4-5.1)
[2024-11-29 08:00] VITALS: BP 105/48
[2024-11-29 08:46] LABS: ATYPICAL LYMPHS 6 % (0-0); TOTAL CELLS COUNTED 100 #CELLS
[2024-11-29 08:47] LABS: PLATELET SUFFICIENCY NORMAL (NORMAL)
[2024-11-29 12:00] VITALS: BP 136/77
[2024-11-29 16:00] VITALS: BP 136/77
[2024-11-29 20:00] VITALS: BP 131/66
[2024-11-30] VITALS: BP 121/78
[2024-11-30 08:00] VITALS: BP 141/75
[2024-11-30] MEDS ORDERED: predniSONE 10 MG TAB PO SCH (10:00)
[2024-11-30] MEDS ORDERED: METOPROLOL SUCC25 M2 PO (11:12)
[2024-11-30] MEDS ORDERED: Ipratropium Brom3 ML NEB (11:18)
[2024-11-30] MEDS ORDERED: LANTUS100 UNIT/1 SC (11:18)
[2024-11-30] MEDS ORDERED: XARE20MG PO (11:18)
[2024-11-30] MEDS ORDERED: LOSARTAN POTASS50 M1 PO (11:18)
== END 2024-11-30 12:08 | disposition home or self-care (01) | DRG 871 ==
LOC: ED 21:39 → 4E 11-26 00:57 → EDHOLD 11-26 00:57 → 4E 11-26 11:40
PROVIDERS: Internal Medicine; Internal Medicine Critical Care Medicine; Internal Medicine Nephrology; ADMIT Internal Medicine; ATTEND Internal Medicine
DX: A41.9 Sepsis, unspecified organism (principal); J18.9 Pneumonia, unspecified organism; J96.01 Acute respiratory failure with hypoxia; J44.1 Chronic obstructive pulmonary disease with (acute) exacerbation; E87.1 Hypo-osmolality and hyponatremia; N17.9 Acute kidney failure, unspecified; J44.0 Chronic obstructive pulmonary disease with (acute) lower respiratory infection; N18.31 Chronic kidney disease, stage 3a; E87.6 Hypokalemia; E66.01 Morbid (severe) obesity due to excess calories; F17.210 Nicotine dependence, cigarettes, uncomplicated; R65.20 Severe sepsis without septic shock; I12.9 Hypertensive chronic kidney disease with stage 1 through stage 4 chronic kidney disease, or unspecified chronic kidney disease; E05.90 Thyrotoxicosis, unspecified without thyrotoxic crisis or storm; E11.65 Type 2 diabetes mellitus with hyperglycemia; E87.8 Other disorders of electrolyte and fluid balance, not elsewhere classified; J43.9 Emphysema, unspecified; J84.10 Pulmonary fibrosis, unspecified; G43.909 Migraine, unspecified, not intractable, without status migrainosus; F32.9 Major depressive disorder, single episode, unspecified; E78.2 Mixed hyperlipidemia; E11.22 Type 2 diabetes mellitus with diabetic chronic kidney disease; Z88.2 Allergy status to sulfonamides; Z88.8 Allergy status to other drugs, medicaments and biological substances; Z91.09 Other allergy status, other than to drugs and biological substances; Z79.899 Other long term (current) drug therapy; Z79.01 Long term (current) use of anticoagulants; Z79.2 Long term (current) use of antibiotics; Z68.37 Body mass index [BMI] 37.0-37.9, adult; Z83.3 Family history of diabetes mellitus; Z86.718 Personal history of other venous thrombosis and embolism; Z86.73 Personal history of transient ischemic attack (TIA), and cerebral infarction without residual deficits; Z82.49 Family history of ischemic heart disease and other diseases of the circulatory system; Z80.8 Family history of malignant neoplasm of other organs or systems; Z90.710 Acquired absence of both cervix and uterus

== ENCOUNTER 2025-07-14 16:09 | Emergency (ER) | payer OTHER ==
[~2025-07-14] VITALS: Ht 172.7 cm; Wt 115.7 kg
[~2025-07-14 16:09] MED LIST changes: +Ipratropium Brom3 ML NEB; +LOSARTAN POTASS50 M1 PO; +METFORMIN850 MG PO; +XARE20MG PO; +XARELTO20 M1 PO
[2025-07-14] MEDS ORDERED: CLINDAMYCIN HC300 MG PO (16:58)
[2025-07-14] MEDS ORDERED: CLINDAMYCIN HCL 300 MG CAPSULE PO ONE (17:15)
[2025-07-14] MEDS ORDERED: Acetaminophen/Hydrocodone 5 MG/325 MG TABLET PO ONE (17:15)
[2025-07-14] MEDS ORDERED: Ondansetron Hydrochloride 4 MG TAB PO ONE (17:20)
[2025-07-14] MEDS ORDERED: Acetaminophen/Hydrocodone Bi 3 TAB PACK PO PRN (17:30)
== END 2025-07-14 17:41 | disposition home or self-care (01) ==
LOC: ED 16:09
DX: L02.412 Cutaneous abscess of left axilla (principal); L73.2 Hidradenitis suppurativa; E11.9 Type 2 diabetes mellitus without complications; I10 Essential (primary) hypertension; J44.9 Chronic obstructive pulmonary disease, unspecified; Z88.2 Allergy status to sulfonamides; Z88.8 Allergy status to other drugs, medicaments and biological substances; Z98.51 Tubal ligation status; Z98.890 Other specified postprocedural states

== ENCOUNTER 2025-07-16 16:01 | Emergency (ER) | payer OTHER ==
[~2025-07-16] VITALS: Ht 172.7 cm; Wt 115.7 kg
[~2025-07-16 16:01] MED LIST changes: +CLINDAMYCIN HC300 MG PO
[2025-07-16 16:11] VITALS: BP 150/92
[2025-07-16] MEDS ORDERED: OMEPRAZOLE MAGN20 MG PO (16:22)
== END 2025-07-16 17:23 | disposition home or self-care (01) ==
LOC: ED 16:01
DX: K21.9 Gastro-esophageal reflux disease without esophagitis (principal); Z48.01 Encounter for change or removal of surgical wound dressing; F17.200 Nicotine dependence, unspecified, uncomplicated; Z88.2 Allergy status to sulfonamides; Z88.8 Allergy status to other drugs, medicaments and biological substances; Z79.899 Other long term (current) drug therapy; Z79.4 Long term (current) use of insulin; Z98.890 Other specified postprocedural states; Z90.710 Acquired absence of both cervix and uterus

== ENCOUNTER 2025-09-05 16:18 | Emergency (ER) | payer OTHER ==
[~2025-09-05] VITALS: Ht 172.7 cm; Wt 120.2 kg
[~2025-09-05 16:18] MED LIST changes: +OMEPRAZOLE MAGN20 MG PO
[2025-09-05 16:27] VITALS: BP 137/66
[2025-09-05] MEDS ORDERED: INHAL AID 1 KIT DEVICE DEVI ONE (17:25)
[2025-09-05 17:37] LABS: BASO # 0.1 10*3/uL (0.0-0.1); BASO % 0.5 % (0.0-1.0); EOS # 0.1 10*3/uL (0.0-0.4); EOS % 0.4 % (1.0-4.0); MEAN CELL VOLUME 87.3 fl (81.0-99.0); MEAN CORPUSCULAR HGB 28.5 pg (27.0-31.0); MEAN PLATELET VOLUME 8.4 fl (9.6-12.3); MONO # 0.3 10*3/uL (0.1-1.0); MONO % 2.2 % (3.0-9.0); NEUT # 9.6 10*3/uL (2.3-7.9); NEUT % 84.5 % (47.0-73.0); NUCLEATED RED BLOOD CELL 0.0 % (0.0-0.0); NUCLEATED RED BLOOD CELL 0.0 10*3/uL (0.0-0.0); PLATELET COUNT AUTOMATED 331 10*3/uL (130-400); RED CELL DISTRI WIDTH 14.6 % (0-14.5)
[2025-09-05] MEDS ORDERED: AMOX-CLAV 875-1 EACH PO (19:04)
[2025-09-05] MEDS ORDERED: Amoxicillin/Clavulanate Pota 875 MG TAB PO ONE (19:05)
== END 2025-09-05 19:12 | disposition home or self-care (01) ==
LOC: ED 16:18
PROVIDERS: Emergency Medicine
DX: J44.1 Chronic obstructive pulmonary disease with (acute) exacerbation (principal); J18.9 Pneumonia, unspecified organism; E11.9 Type 2 diabetes mellitus without complications; I10 Essential (primary) hypertension; F17.200 Nicotine dependence, unspecified, uncomplicated; Z98.51 Tubal ligation status; Z98.890 Other specified postprocedural states; Z90.710 Acquired absence of both cervix and uterus; Z88.2 Allergy status to sulfonamides; Z88.8 Allergy status to other drugs, medicaments and biological substances

== ENCOUNTER 2025-10-13 14:13 | Emergency (ER) | payer OTHER ==
[~2025-10-13] VITALS: Ht 172.7 cm; Wt 117.9 kg
[~2025-10-13 14:13] MED LIST changes: +AMOX-CLAV 875-1 EACH PO
[2025-10-13 14:20] VITALS: BP 148/72
== END 2025-10-13 15:49 | disposition home or self-care (01) ==
LOC: ED 14:13
DX: S63.92XA Sprain of unspecified part of left wrist and hand, initial encounter (principal); S83.91XA Sprain of unspecified site of right knee, initial encounter; F17.200 Nicotine dependence, unspecified, uncomplicated; Z88.2 Allergy status to sulfonamides; Z88.8 Allergy status to other drugs, medicaments and biological substances; Z79.899 Other long term (current) drug therapy; Z98.890 Other specified postprocedural states; W01.198A Fall on same level from slipping, tripping and stumbling with subsequent striking against other object, initial encounter; Y93.89 Activity, other specified; Y92.89 Other specified places as the place of occurrence of the external cause; Y99.8 Other external cause status

== ENCOUNTER 2025-11-03 16:52 | Inpatient (IN) | payer OTHER ==
[~2025-11-03] VITALS: Ht 172.7 cm; Wt 120.8 kg
[2025-11-03] MEDS ORDERED: Ondansetron Hydrochloride 4 MG/2 ML VIAL IV ONE (17:15)
[2025-11-03] MEDS ORDERED: ACETAMINOPHEN 100 ML IV ONE (17:15)
[2025-11-03] MEDS ORDERED: Albuterol Sulf/Ipratropium 3 ML VIAL NEB ONE (17:15)
[2025-11-03] MEDS ORDERED: SODIUM CHLORIDE 0.9% 1,000 ML IV ONE (17:15)
[2025-11-03 17:29] LABS: MANUAL DIFF REFLEX YES; MEAN CELL VOLUME 86.9 fl (81.0-99.0); MEAN CORPUSCULAR HGB 28.2 pg (27.0-31.0); MEAN PLATELET VOLUME 9.1 fl (9.6-12.3); NUCLEATED RED BLOOD CELL 0.0 % (0.0-0.0); NUCLEATED RED BLOOD CELL 0.0 10*3/uL (0.0-0.0); PLATELET COUNT AUTOMATED 164 10*3/uL (130-400); RED CELL DISTRI WIDTH 14.3 % (0-14.5)
[2025-11-03 17:38] LABS: BILIRUBIN Negative (Negative); BLOOD Negative (Negative); CLARITY Clear (Clear); COLOR Yellow (Yellow); KETONE Negative (Negative); LEUKO ESTERASE Negative (Negative); NITRITE Negative (Negative); PH 5.5 (4.5-8.0); SPECIFIC GRAVITY 1.010 (1.001-1.030); UROBILINOGEN 0.2 E.U./dl (0.0-1.0)
[2025-11-03 17:42] LABS: BUN 13 mg/dl (9-23)
[2025-11-03 17:45] LABS: RBC 0-2 rbc/hpf (0-2); WBC 0-2 wbc/hpf (0-5)
[2025-11-03 17:52] LABS: PLATELET SUFFICIENCY NORMAL (NORMAL)
[2025-11-03] MEDS ORDERED: Albuterol Sulf/Ipratropium 3 ML VIAL NEB SCH (20:25)
[2025-11-03] MEDS ORDERED: SODIUM CHLORIDE 0.9% 1,000 ML IV SCH (20:25)
[2025-11-03 20:54] VITALS: BP 104/42
[2025-11-03] MEDS ORDERED: AZITHROMYCIN 250 ML IV SCH (21:00)
[2025-11-03 21:45] VITALS: BP 107/55
[2025-11-03] MEDS ORDERED: GLIPIZIDE10 M2 PO (22:00)
[2025-11-03] MEDS ORDERED: 'CLONIDINE0.1 MG PO (22:00)
[2025-11-03] MEDS ORDERED: GUAIFENESIN 600 MG TAB ER PO SCH (22:00)
[2025-11-04] VITALS: BP 90/52
[2025-11-04 06:21] LABS: BUN 13 mg/dl (9-23)
[2025-11-04] MEDS ORDERED: glipiZIDE 5 MG TAB PO SCH (07:30)
[2025-11-04 07:46] LABS: MANUAL DIFF REFLEX YES; MEAN CELL VOLUME 89.1 fl (81.0-99.0); MEAN CORPUSCULAR HGB 28.2 pg (27.0-31.0); MEAN PLATELET VOLUME 9.0 fl (9.6-12.3); NUCLEATED RED BLOOD CELL 0.0 % (0.0-0.0); NUCLEATED RED BLOOD CELL 0.0 10*3/uL (0.0-0.0); PLATELET COUNT AUTOMATED 137 10*3/uL (130-400); RED CELL DISTRI WIDTH 14.4 % (0-14.5)
[2025-11-04 08:00] VITALS: BP 112/53
[2025-11-04] MEDS ORDERED: DEXTROSE 10 % IN WATER 250 ML IV PRN (08:20)
[2025-11-04 08:29] LABS: PLATELET SUFFICIENCY NORMAL (NORMAL)
[2025-11-04 09:11] VITALS: BP 97/73
[2025-11-04] MEDS ORDERED: IOHEXOL 300 MG/ML 100 ML VIAL IV ONE (09:30)
[2025-11-04] MEDS ORDERED: METOPROLOL SUCCINATE XR 50 MG TAB PO SCH (10:00)
[2025-11-04] MEDS ORDERED: IOHEXOL 300 MG/ML 100 ML VIAL ONE (10:06)
[2025-11-04] MEDS ORDERED: INSULIN REGULAR, HUMAN 1 UNIT/0.01 ML SC SCH (11:30)
[2025-11-04 12:00] VITALS: BP 130/63
[2025-11-04 16:00] VITALS: BP 107/42
[2025-11-04] MEDS ORDERED: METHYLPREDNISOLONE SODIUM SUCCINATE IV SCH (18:00)
[2025-11-04 20:00] VITALS: BP 137/54
[2025-11-04] MEDS ORDERED: RIVAROXABAN 20 MG TAB PO SCH (22:00)
[2025-11-05] VITALS: BP 129/50
[2025-11-05 06:54] LABS: BUN 9 mg/dl (9-23)
[2025-11-05 08:00] VITALS: BP 136/74
[2025-11-05 08:01] LABS: MEAN CELL VOLUME 88.0 fl (81.0-99.0); MEAN CORPUSCULAR HGB 27.9 pg (27.0-31.0); MEAN PLATELET VOLUME 9.9 fl (9.6-12.3); NUCLEATED RED BLOOD CELL 0.0 % (0.0-0.0); NUCLEATED RED BLOOD CELL 0.0 10*3/uL (0.0-0.0); PLATELET COUNT AUTOMATED 121 10*3/uL (130-400); RED CELL DISTRI WIDTH 13.9 % (0-14.5)
[2025-11-05 08:28] LABS: MANUAL DIFF REFLEX YES
[2025-11-05 08:36] LABS: PLATELET SUFFICIENCY LOW (NORMAL)
[2025-11-05 12:00] VITALS: BP 112/71; BP 159/82
[2025-11-05 15:07] LABS: MYCOPLASMA PNEUMONIAE IGG 1300 U/mL (0-99); MYCOPLASMA PNEUMONIAE IGM <770 U/mL (0-769)
[2025-11-05 16:00] VITALS: BP 111/75; BP 159/82
[2025-11-05 20:00] VITALS: BP 134/56
[2025-11-05] MEDS ORDERED: Ondansetron Hydrochloride 4 MG/2 ML VIAL IV PRN (22:00)
[2025-11-06] VITALS: BP 126/55
[2025-11-06 06:55] LABS: BUN 9 mg/dl (9-23)
[2025-11-06 08:00] VITALS: BP 112/91
[2025-11-06 08:56] LABS: MEAN CELL VOLUME 89.7 fl (81.0-99.0); MEAN CORPUSCULAR HGB 28.2 pg (27.0-31.0); MEAN PLATELET VOLUME 9.9 fl (9.6-12.3); NUCLEATED RED BLOOD CELL 0.0 % (0.0-0.0); NUCLEATED RED BLOOD CELL 0.0 10*3/uL (0.0-0.0); RED CELL DISTRI WIDTH 14.0 % (0-14.5)
[2025-11-06 09:18] LABS: PLATELET COUNT AUTOMATED 174 10*3/uL (130-400)
[2025-11-06 09:19] LABS: MANUAL DIFF REFLEX YES
[2025-11-06 09:23] LABS: BASOPHILS 2 % (0-1)
[2025-11-06 09:25] LABS: PLATELET SUFFICIENCY NORMAL (NORMAL)
[2025-11-06] MEDS ORDERED: AZITHROMYCIN500 M2 PO (10:08)
== END 2025-11-06 11:00 | disposition home or self-care (01) | DRG 189 ==
LOC: ED 16:52 → EDHOLD 18:51 → 5E 18:51
PROVIDERS: Emergency Medicine; Internal Medicine; ADMIT Internal Medicine; ATTEND Internal Medicine
DX: J96.21 Acute and chronic respiratory failure with hypoxia (principal); J18.9 Pneumonia, unspecified organism; J44.0 Chronic obstructive pulmonary disease with (acute) lower respiratory infection; J44.1 Chronic obstructive pulmonary disease with (acute) exacerbation; Z68.41 Body mass index [BMI] 40.0-44.9, adult; E87.1 Hypo-osmolality and hyponatremia; F33.1 Major depressive disorder, recurrent, moderate; I13.0 Hypertensive heart and chronic kidney disease with heart failure and stage 1 through stage 4 chronic kidney disease, or unspecified chronic kidney disease; F17.210 Nicotine dependence, cigarettes, uncomplicated; I50.9 Heart failure, unspecified; Z20.822 Contact with and (suspected) exposure to COVID-19; D70.9 Neutropenia, unspecified; E66.01 Morbid (severe) obesity due to excess calories; M54.9 Dorsalgia, unspecified; E11.9 Type 2 diabetes mellitus without complications; E78.2 Mixed hyperlipidemia; K21.9 Gastro-esophageal reflux disease without esophagitis; E05.90 Thyrotoxicosis, unspecified without thyrotoxic crisis or storm; N18.31 Chronic kidney disease, stage 3a; E11.22 Type 2 diabetes mellitus with diabetic chronic kidney disease; Z88.6 Allergy status to analgesic agent; Z88.2 Allergy status to sulfonamides; Z88.8 Allergy status to other drugs, medicaments and biological substances; Z91.09 Other allergy status, other than to drugs and biological substances; Z79.899 Other long term (current) drug therapy; Z79.01 Long term (current) use of anticoagulants; Z86.718 Personal history of other venous thrombosis and embolism; Z86.711 Personal history of pulmonary embolism; Z79.2 Long term (current) use of antibiotics; Z90.710 Acquired absence of both cervix and uterus; Z86.73 Personal history of transient ischemic attack (TIA), and cerebral infarction without residual deficits; Z95.5 Presence of coronary angioplasty implant and graft; Z82.49 Family history of ischemic heart disease and other diseases of the circulatory system; Z83.3 Family history of diabetes mellitus; Z80.8 Family history of malignant neoplasm of other organs or systems